=== PATIENT | female | born 1995 | race African-American/Black ===

== ENCOUNTER 2019-07-13 15:36 | Emergency (ER) | payer OTHER, SELFPAY ==
[2019-07-13 15:42] VITALS: BP 135/88; PULSE 66; RESP 16; TEMP 36.7; O2SAT 100
--- NOTE | 2019-07-13 15:54 | ED.URI ---
HPI - URI/Sore Throat General Chief Complaint: Upper Respiratory Infection Stated Complaint: NAUSEA/COUGH/TIRED Time Seen by Provider: 07/13/19 15:54 Source: patient and RN notes reviewed Mode of arrival: ambulatory Limitations: no limitations History of Present Illness HPI Narrative: 24-year-old female presents with concern for body aches, fever, general malaise, cough, rhinorrhea, nasal congestion. Reports taking [id number] medications with little relief. MD elicited complaint: fever Related Data Home Medications Medication Instructions Recorded Confirmed amitriptyline 07/13/19 Allergies Allergy/AdvReac Type Severity Reaction Status Date / Time No Known Allergies Allergy Verified 06/12/19 20:06 Review of Systems Review of Systems: Narrative: CONSTITUTIONAL: Reports malaise, chills, sweats, fever. EYES: Denies visual changes, redness, or discharge. ENT: Denies rhinorrhea, congestion, sore throat. Denies sinus pain, otalgia. CARDIOVASCULAR: Denies chest pain, palpitations, or edema. RESPIRATORY: Reports cough. Denies dyspnea. GASTROINTESTINAL: Denies abdominal pain, nausea, vomiting, diarrhea SKIN: Denies rash or itching. MUSCULOSKELETAL: Reports myalgia. NEUROLOGIC: Report headache. All systems reviewed & are unremarkable except as noted in HPI and below PMFSH Social History Social History Smoking status: Former smoker Smoking end date: 05/25/11 Alcohol intake: current Substance use type: marijuana Gender identity (if verbalized by the patient): Female Comments At time of signature, agree with nursing past medical, surgical, social and family history. There is no relevant family history pertinent to the presenting complaint Exam Narrative: Exam Narrative: GENERAL: Well-appearing, well-nourished, and in no acute distress. HEAD: Normocephalic EYES: PERRLA, conjunctivae clear ENT: Nares clear, turbinates edematous and erythematous, clear discharge. Mucous membranes moist. TM pearly ng with dull light reflex bilaterally; no tragal tenderness. Oropharynx not erythematous without lesions. Tonsils not enlarged and without exudate, no drooling, no hoarseness, no trismus. NECK: Supple. No lymphadenopathy CHEST: Clear to auscultation, breath sounds equal. No wheezing, rhonchi, rales, or stridor. No respiratory distress, speaks in full sentences. HEART: Regular rate and rhythm. No murmur heard. Normal peripheral pulses. SKIN: Warm, dry, no rash. NEURO: Alert and oriented x3. PSYCH: Normal mood and affect Course Course Emergency Course: Patient is aware of diagnosis, understands and agrees to treatment plan. Anticipatory guidance given. Patient agrees to follow-up as directed and is aware of reasons to seek care at the emergency department. Portions of this record may have been created with voice recognition software Vital Signs Vital signs: Vital Signs Temperature 98.1 F 07/13/19 15:42 Pulse Rate 66 07/13/19 15:42 Respiratory Rate 16 07/13/19 15:42 Blood Pressure 135/88 07/13/19 15:42 Pulse Oximetry 100 07/13/19 15:42 Temperature 98.1 F 07/13/19 15:42 Pulse Rate 66 07/13/19 15:42 Respiratory Rate 16 07/13/19 15:42 Blood Pressure 135/88 07/13/19 15:42 Pulse Oximetry 100 07/13/19 15:42 Reviewed. Patient has been instructed to follow up with her primary care provider within the next week regarding her elevated blood pressure today. MDM - URI/Sore Throat MDM Narrative Medical decision making narrative: Differential diagnosis considered: Strep pharyngitis, allergic rhinitis, upper respiratory tract infection, sinusitis, rhinosinusitis, nasopharyngitis. viral pharyngitis, otitis media, otitis externa, pneumonia, bronchitis, viral cough syndrome, viral syndrome, and influenza. Exam findings show no acute concerns or changes; patient is non-toxic appearing and is in no distress. Patient is appropriate for o
== END 2019-07-13 16:18 | disposition home or self-care (01) ==
PROVIDERS: Emergency Provider Nurse Practitioner; PCP Nurse Practitioner Family
DX: R05 Cough (principal); R52 Pain, unspecified; J34.89 Other specified disorders of nose and nasal sinuses; R09.81 Nasal congestion; R50.9 Fever, unspecified; Z87.891 Personal history of nicotine dependence
CPT/HCPCS: 87804; 99213; G0463

== ENCOUNTER 2019-08-11 07:10 | Outpatient (CLI) | payer OTHER, SELFPAY ==
--- NOTE | ~2019-08-11 | MR_ITS ---
EXAMINATION: MR brain/brain stem wo con EXAM DATE: 08/11/2019 07:56 INDICATION: Central chronic migraines, progressing. History of concussion. TECHNIQUE: Magnetic resonance imaging (MRI) of the brain/brain stem obtained without contrast. Sagitt al T1, axial diffusion, gradient echo (T2*), T1, T2, FLAIR sequences obtained. There is no prior st udy for comparison. FINDINGS: There are no areas of restricted diffusion to suggest acute infarction. There is no acute hemorrhage seen on the T2*, a hemosiderin sensitive sequence. No intraparenchymal brain mass. The ve ntricles are normal in size. There are no extra-axial collections. Flow voids are seen in the cereb ral arteries on the T2-weighted sequences consistent with their expected patency. The orbits are unr emarkable. Soft tissue is unremarkable. IMPRESSION: 1. Normal brain MRI examination. Reviewed, dictated and finalized at location A.
== END 2019-08-11 07:11 ==
PROVIDERS: PCP Nurse Practitioner Family; Visit Provider Nurse Practitioner Family
DX: R51 Headache (principal)
CPT/HCPCS: 70551

== ENCOUNTER 2020-03-10 11:56 | Emergency (ER) | payer OTHER, MEDICAID, SELFPAY ==
--- NOTE | ~2020-03-10 | XR_ITS ---
EXAMINATION: XR chest 2V DATE: 03/10/2020 13:55 INDICATION: Cough. Mid to right-sided chest pain. TECHNIQUE: Frontal and lateral views of the chest were obtained. COMPARISON: CT abdomen 12/06/2005 FINDINGS: The chest demonstrates clear lungs without pneumonia, pleural effusion, or pneumothorax. Th e heart size is normal. IMPRESSION: 1. No acute cardiopulmonary disease. Reviewed, dictated and finalized at location A.
[2020-03-10 12:10] VITALS: BP 140/92; PULSE 90; RESP 20; TEMP 36.7; O2SAT 100
[2020-03-10 12:25] LABS: Add Urine Microscopic? YES; Appearance Urine Cloudy (Clear); Bilirubin Urine Negative (Negative); Blood Urine Negative (Negative); Color Urine Yellow (Yellow); Glucose Urine UA Negative (Negative); Ketones Urine Negative (Negative); Leukocyte Esterase Ur Negative LEU/UL (Negative); Mucus Urine Rare /lpf; Nitrate Urine Negative (Negative); Protein Urine Negative (Negative); RBC Urine 0-2 /hpf (0-2); Specific Grav Ur 1.023 (1.001-1.035); Squamous Epithelial Cell Urine Many /hpf (Few); Urobilinogen Urine Negative mg/dL (<2.0); WBC Urine 0-3 /hpf
--- NOTE | 2020-03-10 12:52 | PC.NURSE ---
resting on stretcher. updated patient and family member on current treatment plan and expected wait time.
[2020-03-10 13:11] LABS: Basophils Percent Auto 0.3 % (0.2-1.2); Eosinophils Absolute Auto 0.1 K/mm3 (0-0.3); Eosinophils Percent Auto 1.2 % (0-4.4); Hematocrit 40.5 % (37.0-47.0); Hemoglobin 13.5 g/dL (12.0-15.0); Immature Granulocyte Absolute 0.02 K/mm3 (0.00-0.031); Immature Granulocyte Percent A 0.2 % (0-0.5); Lymphocytes Absolute Auto 2.53 K/mm3 (0.9-3.2); Lymphocytes Percent Auto 28.3 % (18.3-44.2); Mean Corpuscular HGB Conc 33.3 g/dl (32-36); Mean Corpuscular Hemoglobin 29.7 pg (26-34); Mean Platelet Volume 8.9 fl (7.4-10.4); Monocytes Absolute Auto 0.5 K/mm3 (0.1-0.6); Monocytes Percent Auto 5.5 % (2.6-8.5); Neutrophils Absolute Auto 5.8 K/mm3 (1.3-6.7); Neutrophils Percent Auto 64.5 % (45.5-73.1); Platelet Count Result 373 k/mm3 (150-375); Red Blood Count 4.55 M/mm3 (4.2-5.4); Red Cell Distribution Width 13.2 % (11.5-14.5); White Blood Count 8.9 K/mm3 (4.5-10.0)
[2020-03-10 13:22] LABS: Alanine Aminotransferase 17 U/L (4-35); Albumin Level 4.2 g/dL (3.5-5.1); Alkaline Phosphatase 59 U/L (38-126); Anion Gap 7 mmol/L (8-16); Aspartate Amino Transferase 18 U/L (14-36); Bilirubin,Total 0.5 mg/dL (0.2-1.3); Blood Urea Nitrogen 8 mg/dL (7-17); Calcium 9.3 mg/dL (8.4-10.2); Carbon Dioxide 25 mmol/L (22-30); Chloride 105 mmol/L (98-107); Estimated CRCL calculation 87 ml/min; Estimated Glomerular Filt Rate > 60; Glucose 107 mg/dL (65-105); Lipase 186 U/L (23-300); Potassium 3.7 mmol/L (3.4-5.0); Sodium 137 mmol/L (137-145)
[2020-03-10] MEDS: DICYCLOMINE HCL INJ 20 MG/2 ML VIAL IM (13:31)
[2020-03-10] MEDS: SIMETHICONE 125 MG CHEW TAB PO (13:36)
--- NOTE | 2020-03-10 13:40 | ED.GENADULT ---
HPI - General Adult General Chief complaint: Urogenital-Female Stated complaint: uti?/kidney pain Time Seen by Provider: 03/10/20 12:02 History of Present Illness HPI narrative: Patient is a 25-year-old female who presents to the ER with a litany of complaints. For the last 2 weeks she has felt progressively weak. She started having bloating and discomfort in her abdomen that is associated with intermittent nausea and vomiting. Over the last week she started having diarrhea with 4 loose stools a day. She also reports frequent urination with change in the color of her urine. No overt dysuria or fevers or chills or sweats. Pain is starting to move into her kidney area bilaterally. No aggravating or alleviating factors that she is noted. Related Data Home Medications Medication Instructions Recorded Confirmed lorazepam 0.5 mg PO HS PRN 03/10/20 03/10/20 Allergies Allergy/AdvReac Type Severity Reaction Status Date / Time No Known Allergies Allergy Verified 03/10/20 12:04 Review of Systems Review of Systems: All systems reviewed & are unremarkable except as noted in HPI and below Constitutional: Constitutional: Denies chills, Reports fatigue and Denies fever(s) Cardiovascular: Cardiovascular: Denies chest pain Respiratory: Respiratory: Reports cough and Denies dyspnea Gastrointestinal: Gastrointestinal: Reports abdominal pain, Denies belching, Reports bloating, Reports diarrhea, Reports nausea and Reports vomiting Genitourinary: Genitourinary: Reports nocturia and Denies dysuria PMFSH Past Medical History Medical History (Updated 03/10/20 @ 14:38 by Kd Barrera MD) Abscess Chronic daily headache Fatigue GERD without esophagitis Family History Family History Grandparent Family history of thyroid disease Hypertension Family history of elevated blood lipids Acute myocardial infarction Mother Family history of elevated blood lipids Social History Social History Smoking status: Former smoker Smoking end date: 05/25/11 Alcohol intake: current Substance use type: marijuana Gender identity (if verbalized by the patient): Female Exam Narrative: Exam Narrative: GENERAL: Well-appearing, well-nourished, and in no acute distress. HEAD: Normocephalic, atraumatic. ENT: TMs normal bilaterally. CHEST: Clear to auscultation. No respiratory distress. HEART: Regular rate and rhythm. Normal peripheral pulses. ABDOMEN: Soft, nontender, nondistended. EXTREMITIES: Normal range of motion. No edema. SKIN: Warm, dry, no rash. NEURO: Alert and oriented x3. Course Course Emergency Course: Unremarkable evaluation. Discharge home. Vital Signs Vital signs: Vital Signs Temperature 98.0 F 03/10/20 12:10 Pulse Rate 90 03/10/20 12:10 Respiratory Rate 20 03/10/20 12:10 Blood Pressure 140/92 H 03/10/20 12:10 Pulse Oximetry 100 03/10/20 12:10 Temperature 98.0 F 03/10/20 12:10 Pulse Rate 90 03/10/20 12:10 Respiratory Rate 20 03/10/20 12:10 Blood Pressure 140/92 H 03/10/20 12:10 Pulse Oximetry 100 03/10/20 12:10 Medical Decision Making Vital Signs Vital Signs: Vital Signs Temperature 98.0 F 03/10/20 12:10 Pulse Rate 90 03/10/20 12:10 Respiratory Rate 20 03/10/20 12:10 Blood Pressure 140/92 H 03/10/20 12:10 Pulse Oximetry 100 03/10/20 12:10 Temperature 98.0 F 03/10/20 12:10 Pulse Rate 90 03/10/20 12:10 Respiratory Rate 20 03/10/20 12:10 Blood Pressure 140/92 H 03/10/20 12:10 Pulse Oximetry 100 03/10/20 12:10 Lab Data Result diagrams: 03/10/20 13:05 03/10/20 13:05 Labs: Lab Results 03/10/20 03/10/20 03/10/20 Range/Units 12:08 13:05 13:05 WBC 8.9 (4.5-10.0) K/mm3 RBC 4.55 (4.2-5.4) M/mm3 Hgb 13.5 (12.0-15.0) g/dL Hct 40.5 (37.0-47.0) % MCV 89.0
--- NOTE | 2020-03-10 14:11 | PC.NURSE ---
patient resting on stretcher. SO in room. alert. appears comfortable but states she needs pain medication. patient given meds at 1329. will continue to monitor. labs all resulted. CXR resulted. waiting for further orders from provider vs disposition.
--- NOTE | 2020-03-10 15:11 | PC.NURSE ---
Clara RN to room to discharge patient home. patient upset. states I have not had good care . patient is upset that she didnt get IV placed or IV pain medication. attempted to explain to patient and SO that her labs are normal, UA is normal and CXR are normal. patient signed in here with urinary symptoms. now mentions cough and diarrhea. wants a full work up. Dr. Barrera notified by RN to discuss with patient.
[2020-03-10 15:21] VITALS: BP 131/79; PULSE 108; RESP 18; O2SAT 100
== END 2020-03-10 15:22 | disposition home or self-care (01) ==
PROVIDERS: Emergency Provider Emergency Medicine; PCP Emergency Medicine
DX: K52.9 Noninfective gastroenteritis and colitis, unspecified (principal); K21.9 Gastro-esophageal reflux disease without esophagitis; Z87.891 Personal history of nicotine dependence
CPT/HCPCS: 36415; 71046; 80053; 81001; 81025; 83690; 85025; 96372; 99283; A9270; J0500

== ENCOUNTER 2020-04-30 16:41 | Emergency (ER) | payer OTHER, SELFPAY ==
--- NOTE | 2020-04-30 16:44 | ED.URI ---
HPI - URI/Sore Throat General Chief Complaint: Upper Respiratory Infection Stated Complaint: sore throat/runny nose/chest pain/chest congestion Time Seen by Provider: 04/30/20 16:43 Source: patient and RN notes reviewed Limitations: no limitations History of Present Illness HPI Narrative: The patient, a non-smoker/nondrinker, presents with 1/2-week history of cough, congestion, scratchy throat and myalgias with chest pains and headache. No fever[T-max 99.7 po], S OB, wheezing, loss of taste/smell, sick family, calf pain/edema, sputum changes. She does have some sharp/pleuritic pain by her sternum that is worse with motion, better with rest. Related Data Home Medications Medication Instructions Recorded Confirmed lorazepam 0.5 mg PO HS PRN 03/10/20 04/30/20 Allergies Allergy/AdvReac Type Severity Reaction Status Date / Time No Known Allergies Allergy Verified 04/30/20 16:51 Review of Systems Review of Systems: Narrative: The patient has been informed that they may have pre-hypertension or Hypertension based on a BP reading in the department. I recommend that the patient call the primary care provider listed on their discharge instructions or a physician of their choice this week to arrange follow up for further evaluation of possible pre-hypertension or Hypertension General/Constitutional: No weight loss,has 'fever' Eyes: N0: Redness,discharge Ears/Nose/Throat: No: Epistaxis,ear discharge Respiratory: Denies: Hemoptysis Gastrointestinal: No Vomiting, Bleeding-rectal Skin: No Lumps, eruption Neurologic: No Focal Weakness,Sz Hematologic: Denies: Petechiae/Purpura Psychiatric: No: Suicida ideationl All Other Systems: Reviewed and Negative FOR[facility]LY [facility] Past Medical History Medical History (Updated 04/30/20 @ 17:01 by Yovany Lacy MD) Abscess Chronic daily headache Fatigue GERD without esophagitis Family History Family History Grandparent Family history of thyroid disease Hypertension Family history of elevated blood lipids Acute myocardial infarction Mother Family history of elevated blood lipids Social History Social History Smoking status: Former smoker Smoking end date: 05/25/11 Alcohol intake: current Substance use type: marijuana Gender identity (if verbalized by the patient): Female Comments At time of signature, agree with nursing past medical, surgical, social and family history. There is no relevant family history pertinent to the presenting complaint Exam Narrative: Exam Narrative: General Appearance: Well appearing, Conjunctiva clear Ears: Auditory canal normal, TM normal Nose: Rhinorrhea, Mucousal erythema Mouth/Throat: MM moist, Uvula midline, Pharyngeal erythema Neck: Supple, No adenopathy Respiratory: No respiratory distress, Breath sounds equal, Clear to auscultation Cardiovascular: RRR, No JVD Musculoskeletal: Non tender, Normal strength Skin: Warm, Dry Neurological: A&O x3, Normal affect Course Vital Signs Vital signs: Vital Signs Temperature 98.5 F 04/30/20 16:47 Pulse Rate 97 04/30/20 16:47 Respiratory Rate 20 04/30/20 16:47 Blood Pressure 142/84 H 04/30/20 16:47 Pulse Oximetry 100 04/30/20 16:47 Temperature 98.5 F 04/30/20 16:47 Pulse Rate 97 04/30/20 16:47 Respiratory Rate 20 04/30/20 16:47 Blood Pressure 142/84 H 04/30/20 16:47 Pulse Oximetry 100 04/30/20 16:47 Discharge Plan Discharge Clinical Impression: Upper respiratory infection Qualifiers: URI type: unspecified URI Qualified Code(s): J06.9 - Acute upper respiratory infection, unspecified Patient Disposition: Home, Self-Care Condition: Stable Instructions: Antibiotic Form, Acute Bronchitis (ED) Prescriptions: New azithromycin 250 mg tablet See Rx Instructions .ROUTE .COMPLEX Qty: 6 RF: 0 Lidocaine
[2020-04-30 16:47] VITALS: BP 142/84; PULSE 97; RESP 20; TEMP 36.9; O2SAT 100
== END 2020-04-30 17:10 | disposition home or self-care (01) ==
PROVIDERS: Emergency Provider Emergency Medicine
DX: J06.9 Acute upper respiratory infection, unspecified (principal); Z20.828 Contact with and (suspected) exposure to other viral communicable diseases; Z87.891 Personal history of nicotine dependence; K21.9 Gastro-esophageal reflux disease without esophagitis
CPT/HCPCS: 99213; G0463

== ENCOUNTER 2020-05-01 06:57 | Outpatient (NON) | payer OTHER, SELFPAY ==
[2020-05-01 23:33] LABS: SARS-CoV-2 RNA PCR Negative
== END 2020-05-01 06:58 ==
PROVIDERS: Visit Provider Emergency Medicine
DX: J06.9 Acute upper respiratory infection, unspecified (principal); Z20.828 Contact with and (suspected) exposure to other viral communicable diseases
CPT/HCPCS: 87635; C9803; U0003

== ENCOUNTER 2020-11-03 15:31 | Emergency (ER) | payer OTHER, SELFPAY ==
--- NOTE | ~2020-11-03 | XR_ITS ---
EXAMINATION: XR chest 2V DATE: 11/03/2020 17:25 INDICATION: Cough and fever post recent surgery with intubation. TECHNIQUE: PA and lateral views of the chest were obtained. COMPARISON: Chest radiograph dated 03/10/2020 FINDINGS: The lungs remain clear with no focal airspace opacities, pulmonary edema, pleural effusion or pneumot horax. The cardiomediastinal silhouette is normal. Visualized bones and soft tissues are unremarkable . IMPRESSION: 1. No acute cardiopulmonary disease. Reviewed, dictated and finalized at location A.
--- NOTE | ~2020-11-03 | CT_ITS ---
EXAMINATION: CT abdomen pelvis w con DATE: 11/03/2020 18:49 INDICATION: Postoperative abdominal pain and fever following reported dilation and curettage. TECHNIQUE: Computed tomography (CT) of the abdomen and pelvis was performed with 100 mL Omnipaque-350 intravenous contrast. Automated exposure control and iterative reconstruction technique were employe d. The dose-length product was 514.76 mGy-cm. COMPARISON: CT abdomen dated 12/06/2005 FINDINGS: Lung bases are clear. Heart size is normal. No pericardial or pleural effusion. Liver, gallbladder, s pleen, pancreas, bilateral adrenal glands and kidneys are normal. Large amount of colonic stool most prominent in the redundant cecum which extends across midline into the left hemipelvis. Appendix is n ormal. Small bowel is normal with no obstruction. Bladder, anteverted uterus and left adnexa are unre markable. 11 mm right adnexal cyst/follicle. Minimal likely physiologic free fluid in the pelvis. No abscess or free intraperitoneal gas. No pathologically enlarged abdominal or pelvic lymphadenopathy. Tiny fat-containing umbilical hernia with surrounding mild likely postoperative scarring. Mild lower lumbar levocurvature. Bones are otherwise unremarkable. IMPRESSION: 1. Large amount of colonic stool which could be seen with constipation. 2. Small amount of likely physiologic free fluid in the deep pelvis. No other acute intra-abdominal/p elvic process. Reviewed, dictated and finalized at location A. IMPRESSION: 1. Large amount of colonic stool which could be seen with constipation. 2. Small amount of likely physiologic free fluid in the deep pelvis. No other a cute intra-abdominal/pelvic process.
[2020-11-03 15:34] VITALS: BP 149/88; PULSE 92; RESP 18; TEMP 37.7; O2SAT 98
[2020-11-03 17:47] LABS: Basophils Percent Auto 0.4 % (0.2-1.2); Eosinophils Absolute Auto 0.2 K/mm3 (0-0.3); Eosinophils Percent Auto 1.7 % (0-4.4); Hematocrit 36.5 % (37.0-47.0); Hemoglobin 11.9 g/dL (12.0-15.0); Immature Granulocyte Absolute 0.02 K/mm3 (0.00-0.031); Immature Granulocyte Percent A 0.2 % (0-0.5); Lymphocytes Absolute Auto 2.97 K/mm3 (0.9-3.2); Lymphocytes Percent Auto 32.7 % (18.3-44.2); Mean Corpuscular HGB Conc 32.6 g/dl (32-36); Mean Corpuscular Hemoglobin 29.2 pg (26-34); Mean Corpuscular Volume 89.5 fl (80-100); Monocytes Absolute Auto 0.6 K/mm3 (0.1-0.6); Monocytes Percent Auto 6.3 % (2.6-8.5); Neutrophils Absolute Auto 5.3 K/mm3 (1.3-6.7); Neutrophils Percent Auto 58.7 % (45.5-73.1); Platelet Count Result 377 k/mm3 (150-375); Red Blood Count 4.08 M/mm3 (4.2-5.4); Red Cell Distribution Width 12.7 % (11.5-14.5); White Blood Count 9.1 K/mm3 (4.5-10.0)
[2020-11-03] MEDS: MORPHINE SULFATE (*CRX) 4 MG/ML INJ IV PUSH (17:47)
[2020-11-03 17:50] LABS: Add Urine Microscopic? YES; Appearance Urine Clear (Clear); Bilirubin Urine Negative (Negative); Blood Urine Negative (Negative); Color Urine Yellow (Yellow); Glucose Urine UA Negative (Negative); Ketones Urine Negative (Negative); Leukocyte Esterase Ur Negative LEU/UL (Negative); Nitrate Urine Negative (Negative); Protein Urine 1+ mg/dL (Negative); Specific Grav Ur 1.018 (1.001-1.035); Squamous Epithelial Cell Urine Few /hpf (Few); Urobilinogen Urine Negative mg/dL (<2.0); WBC Urine 0-3 /hpf
--- NOTE | 2020-11-03 17:52 | ED.GENADULT ---
HPI - General Adult General Chief complaint: Recheck/Abnormal Lab/Rx <Kd Barrera MD - Last Filed: 11/03/20 18:00> Stated complaint: post op check <Kd Barrera MD - Last Filed: 11/03/20 18:00> Time Seen by Provider: 11/03/20 17:09 <Kd Barrera MD - Last Filed: 11/03/20 18:00> History of Present Illness HPI narrative: Patient is a 25-year-old female who presents ER with fever. Patient underwent laparoscopy for endometriosis as well as D&C several days ago by Dr. Harris. She contacted the on-call physician who recommended she come to the ER for further evaluation given fever. Patient has been having increased cramping to her lower abdomen. She is also been having productive cough and occasional shortness of breath. Fevers been up to 100.3 ?F. No dysuria or urinary frequency. No malodorous vaginal discharge. She has had a little bit of spotting since her procedure which she was told was normal. <Kd Barrera MD - Last Filed: 11/03/20 18:00> Related Data Home medications: Home Medications Medication Instructions Recorded Confirmed lorazepam 0.5 mg PO HS PRN 03/10/20 04/30/20 <Kd Barrera MD - Last Filed: 11/03/20 18:00> Allergies/adverse reactions: Allergies Allergy/AdvReac Type Severity Reaction Status Date / Time No Known Allergies Allergy Verified 04/30/20 16:51 <Kd Barrera MD - Last Filed: 11/03/20 18:00> Review of Systems Review of Systems: All systems reviewed & are unremarkable except as noted in HPI and below <Kd Barrera MD - Last Filed: 11/03/20 18:00> Constitutional: Constitutional: Reports chills and Reports fever(s) <Kd Barrera MD - Last Filed: 11/03/20 18:00> ENT: Denies nasal congestion and Denies sore throat <Kd Barrera MD - Last Filed: 11/03/20 18:00> Cardiovascular: Cardiovascular: Denies chest pain and Denies radiating jaw, neck or arm pain <Kd Barrera MD - Last Filed: 11/03/20 18:00> Respiratory: Respiratory: Denies chest congestion, Reports cough and Reports dyspnea <Kd Barrera MD - Last Filed: 11/03/20 18:00> Gastrointestinal: Gastrointestinal: Reports abdominal pain, Denies diarrhea, Denies nausea and Denies vomiting <Kd Barrera MD - Last Filed: 11/03/20 18:00> Genitourinary: Genitourinary: Denies abnormal vaginal bleeding, Denies nocturia, Denies dysuria and Denies vaginal discharge <Kd Barrera MD - Last Filed: 11/03/20 18:00> PMFSH Past Medical History Medical History: Medical History (Updated 11/03/20 @ 19:53 by Eric Head MD) Abscess Chronic daily headache Fatigue GERD without esophagitis <Kd Barrera MD - Last Filed: 11/03/20 18:00> Surgical History Surgical History: Surgical History (Updated 11/03/20 @ 17:58 by Kd Barrera MD) H/O dilation and curettage History of laparoscopy <Kd Barrera MD - Last Filed: 11/03/20 18:00> Family History Family History: Family History Grandparent Family history of thyroid disease Hypertension Family history of elevated blood lipids Acute myocardial infarction Mother Family history of elevated blood lipids <Kd Barrera MD - Last Filed: 11/03/20 18:00> Social History Social History: Social History Smoking status: Former smoker Smoking end date: 05/25/11 Alcohol intake: current Substance use type: marijuana Gender identity (if verbalized by the patient): Female <Kd Barrera MD - Last Filed: 11/03/20 18:00> Exam Narrative: Exam Narrative: GENERAL: Well-appearing, well-nourished, and in no acute distress. HEAD: Normocephalic, atraumatic. ENT: Mucous membranes moist. No pharyngeal erythema or tonsillar exam. CHEST: Clear to auscultation. No respiratory distress. HEART: Regular rate and rhythm
[2020-11-03 17:59] LABS: Anion Gap 6 mmol/L (8-16); Blood Urea Nitrogen 8 mg/dL (7-17); Calcium 9.2 mg/dL (8.4-10.2); Carbon Dioxide 26 mmol/L (22-30); Chloride 107 mmol/L (98-107); Estimated CRCL calculation 89 ml/min; Estimated Glomerular Filt Rate > 60; Glucose 102 mg/dL (65-105); Potassium 4.4 mmol/L (3.4-5.0); Sodium 139 mmol/L (137-145)
[2020-11-03 20:13] VITALS: BP 119/80; PULSE 88; RESP 16; O2SAT 99
== END 2020-11-03 20:14 | disposition home or self-care (01) ==
PROVIDERS: Emergency Medicine; Emergency Provider Emergency Medicine
DX: R50.9 Fever, unspecified (principal); K21.9 Gastro-esophageal reflux disease without esophagitis; Z98.890 Other specified postprocedural states
CPT/HCPCS: 36415; 71046; 74177; 80048; 81001; 85025; 96374; 99284; J2270; Q9967

== ENCOUNTER 2020-12-08 19:06 | Emergency (ER) | payer OTHER, SELFPAY ==
--- NOTE | ~2020-12-08 | XR_ITS ---
EXAMINATION: XR chest 1V portable INDICATION: Chest pain TECHNIQUE: Portable AP chest at 2213 hours COMPARISON: 11/03/2020 FINDINGS: The lungs are free of acute opacities. There is no pleural effusion or pneumothorax. The ca rdiomediastinal silhouette is normal. The visualized bones and soft tissues are unremarkable. IMPRESSION: 1. No acute cardiopulmonary abnormality. Reviewed, dictated and finalized at location A.
[2020-12-08 19:11] VITALS: BP 145/101; PULSE 97; RESP 18; TEMP 37; O2SAT 100
--- NOTE | 2020-12-08 19:46 | ECG_ITS ---
Measurements Intervals [place] Rate: 97 P: 55 [place]: 138 QRS: 72 QRSD: 83 T: 50 QT: 336 QTc: 427 Interpretive Statements SINUS RHYTHM POSSIBLE LEFT ATRIAL ENLARGEMENT MINIMAL Q WAVES- DIFFUSE LEADS BORDERLINE ECG Electronically Signed On 12-09-2020 7:24:00 CDT by Hai Banerjee D.O.
--- NOTE | 2020-12-08 20:14 | ED.GENADULT ---
HPI - General Adult General Chief complaint: Shortness of Breath/Dyspnea Stated complaint: bronchitis Time Seen by Provider: 12/08/20 19:35 History of Present Illness HPI narrative: Patient was 5-year-old female presents the emergency department with chief complaint of chest wall pain and cough. Patient reports that she was diagnosed with bronchitis in urgent care and started on Augmentin and given an inhaler. The patient reports that she has subsequently continued to cough reports that she has pain in her chest wall reports is worse with inspiration and worse with cough. Patient reports she had subjective fevers at home and reports that she has had one of the 2 vaccines for COVID-19 she reports her first dose was on the seventh. Patient reported that she had a rapid test done at urgent care that was negative but is still concerned that she may have Covid. The patient denies prior history of thromboembolic event reports that the cough is nonproductive. Related Data Home Medications Medication Instructions Recorded Confirmed lorazepam 0.5 mg PO HS PRN 03/10/20 04/30/20 Allergies Allergy/AdvReac Type Severity Reaction Status Date / Time No Known Allergies Allergy Verified 04/30/20 16:51 Review of Systems Review of Systems: Narrative: A 10 system review of systems was completed on the patient and is negative except for what is stated in the HPI. Nursing and ancillary documentation was reviewed. PMFSH Past Medical History Medical History Abscess Chronic daily headache Fatigue GERD without esophagitis Surgical History Surgical History H/O dilation and curettage History of laparoscopy Family History Family History Grandparent Family history of thyroid disease Hypertension Family history of elevated blood lipids Acute myocardial infarction Mother Family history of elevated blood lipids Social History Social History Smoking status: Former smoker Smoking end date: 05/25/11 Alcohol intake: current Substance use type: marijuana Gender identity (if verbalized by the patient): Female Exam Narrative: Exam Narrative: GENERAL: Well-appearing, well-nourished, and in no acute distress. HEAD: Normocephalic, atraumatic. EYES: PERRLA and EOMI. ENT: Nares clear, no rhinorrhea or epistaxis. Mucous membranes moist. NECK: Supple. CHEST: Clear to auscultation. No respiratory distress. Chest wall tender to palpation in the left sternal border HEART: Regular rate and rhythm. No murmur heard. Normal peripheral pulses. ABDOMEN: Soft, nontender, nondistended, normal active bowel sounds. EXTREMITIES: Normal range of motion. No edema. SKIN: Warm, dry, no rash. NEURO: No focal deficits. Alert and oriented x3. PSYCH: Normal mood and affect. Course Course Emergency Course: Due to the patient being partially treated with amoxicillin concerned the whether the patient has an atypical bacterial infection additional coverage will be added to the patient's current antimicrobial therapy patient will be started on Tessalon Perles for the cough and the patient will be started on a anti-inflammatory dose of a nonsteroidal. The patient's D-dimer was not elevated at this time is considered low risk the patient has a pulmonary embolism. Vital Signs Vital signs: Vital Signs Temperature 37.0 C 12/08/20 19:11 Pulse Rate 97 12/08/20 19:11 Respiratory Rate 18 12/08/20 19:11 Blood Pressure 145/101 H 12/08/20 19:11 Pulse Oximetry 100 12/08/20 19:11 Temperature 37.0 C 12/08/20 19:11 Pulse Rate 97 12/08/20 19:11 Respiratory Rate 18 12/08/20 19:11 Blood Pressure 145/101 H 12/08/20 19:11 Pulse Oximetry 100 12/08/20 19:11 Medical Decision Making Nat
[2020-12-08] MEDS: KETOROLAC 30 MG/ML VIAL (*BKC) IV PUSH (20:25)
[2020-12-08] MEDS: BENZONATATE 100 MG CAPSULE 200 MG PO (20:29)
[2020-12-08 20:43] LABS: Basophils Percent Auto 0.3 % (0.2-1.2); Eosinophils Absolute Auto 0.2 K/mm3 (0-0.3); Eosinophils Percent Auto 1.7 % (0-4.4); Hematocrit 38.2 % (37.0-47.0); Hemoglobin 12.7 g/dL (12.0-15.0); Immature Granulocyte Absolute 0.02 K/mm3 (0.00-0.031); Immature Granulocyte Percent A 0.2 % (0-0.5); Lymphocytes Absolute Auto 3.64 K/mm3 (0.9-3.2); Lymphocytes Percent Auto 38.3 % (18.3-44.2); Mean Corpuscular HGB Conc 33.2 g/dl (32-36); Mean Corpuscular Hemoglobin 29.1 pg (26-34); Mean Corpuscular Volume 87.4 fl (80-100); Mean Platelet Volume 9.7 fl (7.4-10.4); Monocytes Absolute Auto 0.7 K/mm3 (0.1-0.6); Monocytes Percent Auto 7.2 % (2.6-8.5); Neutrophils Percent Auto 52.3 % (45.5-73.1); Platelet Count Result 402 k/mm3 (150-375); Red Blood Count 4.37 M/mm3 (4.2-5.4); Red Cell Distribution Width 12.7 % (11.5-14.5); White Blood Count 9.5 K/mm3 (4.5-10.0)
[2020-12-08 20:46] LABS: Add Urine Microscopic? YES; Appearance Urine Clear (Clear); Bilirubin Urine Negative (Negative); Blood Urine Negative (Negative); Color Urine Yellow (Yellow); Glucose Urine UA Negative (Negative); Ketones Urine Negative (Negative); Leukocyte Esterase Ur Negative LEU/UL (Negative); Mucus Urine Rare /lpf; Nitrate Urine Negative (Negative); Protein Urine Negative (Negative); RBC Urine 0-2 /hpf (0-2); Specific Grav Ur 1.026 (1.001-1.035); Squamous Epithelial Cell Urine Rare /hpf (Few); Urobilinogen Urine Negative mg/dL (<2.0)
[2020-12-08 21:08] LABS: INR 0.8; Partial Thromboplastin Time 26.9 SECONDS (22.3-36.8); Prothrombin Time 11.5 Seconds (11.1-14.7)
[2020-12-08 21:11] LABS: D Dimer 0.31 ug/mL (<0.48)
[2020-12-08 21:13] LABS: Alanine Aminotransferase 13 U/L (4-35); Albumin Level 4.3 g/dL (3.5-5.1); Alkaline Phosphatase 74 U/L (38-126); Anion Gap 11 mmol/L (8-16); Aspartate Amino Transferase 25 U/L (14-36); Bilirubin,Total 0.3 mg/dL (0.2-1.3); Blood Urea Nitrogen 13 mg/dL (7-17); Calcium 9.5 mg/dL (8.4-10.2); Carbon Dioxide 25 mmol/L (22-30); Chloride 103 mmol/L (98-107); Estimated CRCL calculation 89 ml/min; Estimated Glomerular Filt Rate > 60; Glucose 97 mg/dL (65-110); Potassium 3.7 mmol/L (3.4-5.0); Sodium 139 mmol/L (137-145)
[2020-12-08 21:25] LABS: NT Pro B Type Natriuretic Pept 25 pg/mL (5-100); Troponin I < 0.012 ng/mL (0.000-0.034)
[2020-12-08 22:50] VITALS: BP 144/91; PULSE 99; RESP 16; O2SAT 100
[2020-12-10 20:38] LABS: SARS-CoV-2 RNA PCR Negative
== END 2020-12-08 22:51 | disposition home or self-care (01) ==
PROVIDERS: Emergency Provider Emergency Medicine
DX: J20.9 Acute bronchitis, unspecified (principal); R07.89 Other chest pain; Z20.822 Contact with and (suspected) exposure to COVID-19; K21.9 Gastro-esophageal reflux disease without esophagitis; Z87.891 Personal history of nicotine dependence; R94.31 Abnormal electrocardiogram [ECG] [EKG]
CPT/HCPCS: 36415; 71045; 80053; 81001; 81025; 83880; 84484; 85025; 85380; 85610; 85730; 93005; 96374; 99284; A9270; C9803; J1885; U0003; U0005

== ENCOUNTER 2021-02-16 12:28 | Emergency (ER) | payer OTHER, SELFPAY ==
[2021-02-16 12:34] VITALS: BP 143/90; PULSE 87; RESP 16; TEMP 37; O2SAT 100
--- NOTE | 2021-02-16 12:37 | ED.URI ---
HPI - URI/Sore Throat General Chief Complaint: Upper Respiratory Infection Stated Complaint: fatigue/cough/sore throat Time Seen by Provider: 02/16/21 12:41 Source: patient and RN notes reviewed Mode of arrival: ambulatory Limitations: no limitations History of Present Illness HPI Narrative: 26-year-old female presents with concern for 2-1/2-day history of fatigue, cough, sore throat, headache. She reports a history of chronic costochondritis causing the cough to make her chest hurt. Reports she has been taking home remedies such as teas with little relief. She reports she has been vaccinated for Covid. She denies body aches, chills, sweats. Reports low-grade fever of 99.9. She denies shortness of breath. Denies nausea, vomiting, diarrhea. 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 elicited complaint: cough Related Data Home Medications Medication Instructions Recorded Confirmed desog-e.estradiol/e.estradiol 1 tablet PO DAILY 02/16/21 02/16/21 [Paige (28)] Allergies Allergy/AdvReac Type Severity Reaction Status Date / Time No Known Allergies Allergy Verified 02/16/21 12:32 Review of Systems Review of Systems: CONSTITUTIONAL: Reports malaise, fatigue, low-grade fever. EYES: Denies visual changes, redness, or discharge. ENT: Reports rhinorrhea, congestion, sore throat. Denies sinus pain, otalgia CARDIOVASCULAR: Denies chest pain, palpitations, or edema. RESPIRATORY: Reports cough. Denies dyspnea. GASTROINTESTINAL: Denies abdominal pain, nausea, vomiting, diarrhea SKIN: Denies rash or itching. MUSCULOSKELETAL: Denies myalgia. NEUROLOGIC: Reports headache. All systems reviewed & are unremarkable except as noted in HPI and below PMFSH Past Medical History Medical History Abscess Chronic daily headache Fatigue GERD without esophagitis Surgical History Surgical History H/O dilation and curettage History of laparoscopy Family History Family History Grandparent Family history of thyroid disease Hypertension Family history of elevated blood lipids Acute myocardial infarction Mother Family history of elevated blood lipids Social History Social History Smoking status: Former smoker Smoking end date: 05/25/11 Alcohol intake: current Substance use type: marijuana Gender identity (if verbalized by the patient): Female Comments At time of signature, agree with nursing past medical, surgical, social and family history. There is no relevant family history pertinent to the presenting complaint Exam Narrative: GENERAL: Well-appearing, well-nourished, and in no acute distress. HEAD: Normocephalic EYES: PERRLA, conjunctivae clear ENT: Nares clear, turbinates erythematous, clear discharge. Mucous membranes moist. TM pearly ng with dull light reflex bilaterally; no tragal tenderness. Oropharynx not erythematous without lesions. Tonsils enlarged and without exudate, no drooling, no hoarseness, no trismus, uvula midline. NECK: Supple. No lymphadenopathy CHEST: Clear to auscultation, breath sounds equal. No wheezing, rhonchi, rales, or stridor. No respiratory distress, speaks in full sentences. HEART: Regular rate and rhythm. No murmur heard. SKIN: Warm, dry, no rash. NEURO: Alert and oriented x3. PSYCH: Normal mood and affect Course Course Emergency Course: Patient is aware of diagnosis, understands and agrees to treatment plan. Anticipatory guidance given. Patient agrees to follow-up as directed and is aware of reasons to seek care at the emergency department. Portions of this record may have been created with voice recognition software Vital Signs Vital signs: Vital Signs Temperature 98.6 F 02/16/21 12:34 Pulse Rate
[2021-02-18 17:27] LABS: SARS-CoV-2 RNA PCR Negative
== END 2021-02-16 13:10 | disposition home or self-care (01) ==
PROVIDERS: Emergency Provider Nurse Practitioner
DX: J06.9 Acute upper respiratory infection, unspecified (principal); Z87.891 Personal history of nicotine dependence; Z20.822 Contact with and (suspected) exposure to COVID-19
CPT/HCPCS: 87804; 99213; C9803; G0463; U0003; U0005

== ENCOUNTER 2021-02-20 11:32 | Emergency (ER) | payer OTHER, SELFPAY ==
[2021-02-20 11:48] VITALS: BP 131/95; PULSE 84; RESP 16; TEMP 36.4; O2SAT 100
--- NOTE | 2021-02-20 11:51 | ED.URI ---
HPI - URI/Sore Throat General Chief Complaint: Upper Respiratory Infection Stated Complaint: COUGH/SOB/PAIN Time Seen by Provider: 02/20/21 11:52 Source: patient and RN notes reviewed History of Present Illness HPI Narrative: Patient is a 26-year-old female who presents the urgent care with complaints of cough, intermittent shortness of breath and sore throat. Patient states that she was seen at the facility on Thursday and has been using her cough medication and nasal spray as directed. Patient also also been taking the Zyrtec-D. States that she did follow-up with a Covid test, which was negative. Patient states that her main issue is the bad cough. States that she had to leave work today because of the cough . Denies of any known exposure to strep or Covid. No other acute complaints. No acute distress noted. Patient aware of the plan of care. Some parts of this dictation were generated by voice recognition software and may contain typographical and/or grammatical inaccuracies. Related Data Home Medications Medication Instructions Recorded Confirmed desog-e.estradiol/e.estradiol 1 tablet PO DAILY 02/16/21 02/16/21 [Paige (28)] Allergies Allergy/AdvReac Type Severity Reaction Status Date / Time No Known Allergies Allergy Verified 02/16/21 12:32 Review of Systems Review of Systems: CONSTITUTIONAL: Denies fever, chills, or sweats. EYES: Denies visual changes, redness, or discharge. ENT: Reports a sore throat and postnasal drainage CARDIOVASCULAR: Denies chest pain, palpitations, or edema. RESPIRATORY: Reports of cough with intermittent dyspnea GASTROINTESTINAL: Denies abdominal pain, nausea, vomiting, or diarrhea. GENITOURINARY: Denies dysuria or hematuria. SKIN: Denies rash or itching. MUSCULOSKELETAL: Denies back pain, joint pain, or myalgia. NEUROLOGIC: Denies headache, numbness, or weakness. All other systems reviewed are negative, except as documented in HPI. [facility] Past Medical History Medical History Abscess Chronic daily headache Fatigue GERD without esophagitis Surgical History Surgical History H/O dilation and curettage History of laparoscopy Family History Family History Grandparent Family history of thyroid disease Hypertension Family history of elevated blood lipids Acute myocardial infarction Mother Family history of elevated blood lipids Social History Social History Smoking status: Former smoker Smoking end date: 05/25/11 Alcohol intake: current Substance use type: marijuana Gender identity (if verbalized by the patient): Female Comments At the time of my signature, I reviewed and agree with the nursing past medical, surgical, social, and family history. There is no relevant family history pertinent to the patient complaint. Exam Narrative: GENERAL: This is a well-nourished, well-developed patient, in no apparent distress. HEAD: normocephalic, atraumatic. EYES: PERRL. Sclera clear/white. Vision is grossly intact. EARS: External ears normal, auditory canals clear and without drainage, TMs normal without perforation. Hearing grossly intact. NOSE: External nose normal with no obvious nasal discharge, nares without redness, no rhinorrhea. THROAT: Mucous membranes moist, posterior pharynx clear. Mild postnasal drainage NECK: Neck supple CARDIOVASCULAR: Regular rate and rhythm without murmurs, gallops, or rubs. RESPIRATORY: Clear to auscultation. Breath sounds equal bilaterally. No wheezes, rales, or rhonchi. GASTROINTESTINAL: Abdomen soft, non-tender, nondistended. Bowel sounds are active. No hepato-splenomegaly, or palpable masses. No guarding. SKIN: warm, intact with no suspicious lesions or rash, good texture and turgor.
== END 2021-02-20 12:26 | disposition home or self-care (01) ==
PROVIDERS: Emergency Provider Nurse Practitioner Family
DX: R05 Cough (principal); Z87.891 Personal history of nicotine dependence; K21.9 Gastro-esophageal reflux disease without esophagitis
CPT/HCPCS: 87081; 87880; 99213; G0463

== ENCOUNTER 2021-03-03 12:15 | Emergency (ER) | payer OTHER, SELFPAY ==
[2021-03-03 12:20] VITALS: BP 141/82; PULSE 101; RESP 16; TEMP 37.1; O2SAT 100
--- NOTE | 2021-03-03 12:25 | ED.URI ---
HPI - URI/Sore Throat General Chief Complaint: Upper Respiratory Infection Stated Complaint: Sore Throat Time Seen by Provider: 03/03/21 12:25 Source: patient and RN notes reviewed Mode of arrival: ambulatory Limitations: no limitations History of Present Illness HPI Narrative: 26-year-old female presents with concern for sore throat. Reports sore throat started yesterday. Reports she has had a sinus congestion, sinus drainage, cough, runny nose for 2 weeks that have not improved. Reports she has been seen in this clinic twice for the symptoms and has been taking her prescribed medications. Reports 2 weeks ago she had a sore throat that improved but she now has a sore throat again with body aches, chills, fatigue. She denies shortness of breath. Denies vomiting, diarrhea. MD elicited complaint: cough and sore throat Related Data Home Medications Medication Instructions Recorded Confirmed desog-e.estradiol/e.estradiol 1 tablet PO DAILY 02/16/21 02/16/21 [Viorele (28)] fluticasone propionate [Flonase] INTRANASAL 03/03/21 Allergies Allergy/AdvReac Type Severity Reaction Status Date / Time No Known Allergies Allergy Verified 03/03/21 12:20 Review of Systems Review of Systems: CONSTITUTIONAL: Reports malaise, chills, sweats, fever. EYES: Denies visual changes, redness, or discharge. ENT: Reports rhinorrhea, congestion, sinus pain, and sore throat. Denies otalgia CARDIOVASCULAR: Denies chest pain, palpitations, or edema. RESPIRATORY: Reports cough. Denies dyspnea. GASTROINTESTINAL: Denies abdominal pain, nausea, vomiting, diarrhea SKIN: Denies rash or itching. MUSCULOSKELETAL: Reports myalgia. NEUROLOGIC: Denies headache. All systems reviewed & are unremarkable except as noted in HPI and below PMFSH Past Medical History Medical History Abscess Chronic daily headache Fatigue GERD without esophagitis Surgical History Surgical History H/O dilation and curettage History of laparoscopy Family History Family History Grandparent Family history of thyroid disease Hypertension Family history of elevated blood lipids Acute myocardial infarction Mother Family history of elevated blood lipids Social History Social History Smoking status: Former smoker Smoking end date: 05/25/11 Alcohol intake: current Substance use type: marijuana Gender identity (if verbalized by the patient): Female Comments At time of signature, agree with nursing past medical, surgical, social and family history. There is no relevant family history pertinent to the presenting complaint Exam Narrative: GENERAL: Well-appearing, well-nourished, and in no acute distress. HEAD: Normocephalic EYES: PERRLA, conjunctivae clear ENT: Nares clear, turbinates edematous, erythematous, sinus tenderness. Mucous membranes moist. TM pearly ng with dull light reflex bilaterally; no tragal tenderness. Oropharynx mild erythematous without lesions. Tonsils not enlarged and without exudate, no drooling, no hoarseness, no trismus, uvula midline. NECK: Supple. No lymphadenopathy CHEST: Clear to auscultation, breath sounds equal. No wheezing, rhonchi, rales, or stridor. No respiratory distress, speaks in full sentences. Cough noted HEART: Regular rate and rhythm. No murmur heard. SKIN: Warm, dry, no rash. NEURO: Alert and oriented x3. PSYCH: Normal mood and affect Course Course Emergency Course: Patient is aware of diagnosis, understands and agrees to treatment plan. Anticipatory guidance given. Patient agrees to follow-up as directed and is aware of reasons to seek care at the emergency department. Portions of this record may have been created with voice recognition software Vital Signs Vital sig
== END 2021-03-03 13:05 | disposition home or self-care (01) ==
PROVIDERS: Emergency Provider Nurse Practitioner
DX: J01.90 Acute sinusitis, unspecified (principal); K21.9 Gastro-esophageal reflux disease without esophagitis; Z87.891 Personal history of nicotine dependence
CPT/HCPCS: 36416; 86308; 87081; 87880; 99213; G0463

== ENCOUNTER 2024-05-23 08:20 | Emergency (ER) | payer SELFPAY ==
--- NOTE | ~2024-05-23 | XR_ITS ---
EXAMINATION: XR chest 2V DATE: 05/23/2024 09:09 INDICATION: Shortness of breath, cough, and fever. TECHNIQUE: Frontal and lateral views of the chest were obtained. COMPARISON: Chest view on 12/08/2020, CT abdomen and pelvis 11/03/2020 FINDINGS: A calcified right lung nodule is consistent with old granulomatous disease. No pleural effu danay or pneumothorax. The heart size is normal. IMPRESSION: 1. No acute cardiopulmonary disease. Reviewed, dictated and finalized at location [] Y INTERVENTIONIST
[2024-05-23 08:24] VITALS: BP 147/87; PULSE 130; RESP 24; TEMP 38.4; O2SAT 100
[2024-05-23] MEDS: ACETAMINOPHEN 500 MG TABLET 1000 MG PO (09:19)
[2024-05-23 09:20] LABS: Influenza A QL RT-PCR Positive (Negative); Influenza B QL RT-PCR Negative (Negative); RSV RNA, RT-PCR Negative (Negative); SARS-CoV-2 RNA PCR Negative (Negative)
--- NOTE | 2024-05-23 09:27 | ED_ITS ---
HPI - General Adult General Chief complaint: Upper Respiratory Infection Stated complaint: cough, fever, SOB Time Seen by Provider: 05/23/24 08:28 Source: patient Mode of arrival: ambulatory Limitations: no limitations History of Present Illness HPI narrative: 29-year-old with a history of asthma here with the complaints of cough, congestion, fever, body aches for past 2 days. She also complains of headache. Denies any nausea or vomiting. Onset (ago): day(s) (2) Severity: moderate Quality: aching Pain Consistency: constant Relieving factors: none Exacerbating factors: none Associated symptoms: fever/chills and shortness of breath Related Data Home Medications ?Medication ?Instructions ?Recorded ?Confirmed ?Last Taken ?Type desogestrel-e.estradiol 0.15 1 tablet PO DAILY 02/16/21 03/03/21 Unknown History mg-0.02 mg(21)/e.estrad 0.01 mg(5) tablet (Viorele ()) fluticasone propionate 50 1 spray intranasal DAILY 03/03/21 03/03/21 Unknown History mcg/actuation nasal spray,suspension Allergies Allergy/AdvReac Type Severity Reaction Status Date / Time No Known Allergies Allergy Verified 05/23/24 08:29 Review of Systems Review of Systems: All systems reviewed & are unremarkable except as noted in HPI and below Constitutional: Constitutional: Reports no additional constitutional complaints Eyes: Eyes: Reports no additional eye complaints ENT: Reports system reviewed and no additional complaints, except as documented Cardiovascular: Cardiovascular: Reports no additional cardiovascular complaints Respiratory: Respiratory: Reports as per HPI Gastrointestinal: Gastrointestinal: Reports no additional gastrointestinal complaints Genitourinary: Genitourinary: Reports no additional female genitourinary complaints Musculoskeletal: Musculoskeletal: Reports no additional musculoskeletal complaints Integumentary/Breasts: Skin/Breast: Reports system reviewed and no additional complaints, except as docu PMFSH Past Medical History Medical History Abscess GERD without esophagitis Fatigue Chronic daily headache Surgical History Surgical History H/O dilation and curettage History of laparoscopy Family History Family History Grandparent Family history of thyroid disease Hypertension Family history of elevated blood lipids Acute myocardial infarction Mother Family history of elevated blood lipids Social History Social History Smoking status: Former smoker Smoking end date: 05/25/11 Alcohol intake: current Substance use type: marijuana Gender identity (if verbalized by the patient): Female Exam Narrative: GENERAL: Well-appearing, well-nourished, and in no acute distress. HEAD: Normocephalic, atraumatic. EYES: PERRLA and EOMI. NECK: Supple. CHEST: Clear to auscultation. No respiratory distress. HEART: Regular rate and rhythm. No murmur heard. Normal peripheral pulses. EXTREMITIES: Normal range of motion. No edema. SKIN: Warm, dry, no rash. NEURO: No focal deficits. Alert and oriented x3. PSYCH: Normal mood and affect. Course Course Emergency Course: Informed patient about her lab work, chest x-ray findings. Advised her to take Tamiflu as prescribed. Drink plenty of fluids, rest Vital Signs Vital signs: Vital Signs Temperature 38.4 C H 05/23/24 08:24 Pulse Rate 130 H 05/23/24 08:24 Respiratory Rate 24 H 05/23/24 08:24 Blood Pressure 147/87 H 05/23/24 08:24 Pulse Oximetry 100 05/23/24 08:24 Oxygen Delivery Room Air 05/23/24 08:24 Temperature 38.4 C H 05/23/24 08:24 Pulse Rate 130 H 05/23/24 08:24 Respiratory Rate 24 H 05/23/24 08:24 Blood Pressure 147/87 H 05/23/24 08:24 Pulse Oximetry 100 05/23/24 08:24 Oxygen Delivery Room Air 05/23/24 08:24 Medical Decision Making MDM Narrative Medical decision making narrative: 29-year-old with a history of asthma now having cough congestion and fever with do a chest x-ray to rule out pneumonia along with COVID RSV influenza screen. Differential Diagnosis Differential Diagnosis: Bronchitis, pneumonia, viral syndrome Medical Records Medical records reviewed: Yes I reviewed the external patient's medical records. Vital Signs Vital Signs: Vital Signs Temperature 38.4 C H 05/23/24 08:24 Pulse Rate 130 H 05/23/24 08:24 Respiratory Rate 24 H 05/23/24 08:24 Blood Pressure 147/87 H 05/23/24 08:24 Pulse Oximetry 100 05/23/24 08:24 Oxygen Delivery Room Air 05/23/24 08:24 Temperature 38.4 C H 05/23/24 08:24 Pulse Rate 130 H 05/23/24 08:24 Respiratory Rate 24 H 05/23/24 08:24 Blood Pressure 147/87 H 05/23/24 08:24 Pulse Oximetry 100 05/23/24 08:24 Oxygen Delivery Room Air 05/23/24 08:24 Lab Data Labs: Lab Results 05/23/24 Range/Units 08:33 Influenza A (RT-PCR) Positive A (Negative) Influenza B (RT-PCR) Negative (Negative) RSV (RT-PCR) Negative (Negative) SARS-CoV-2 RNA (RT-PCR) Negative (Negative) Imaging Data Radiologist's impression: ITS Impressions Chest X-Ray 05/23/24 09:10 IMPRESSION: 1. No acute cardiopulmonary disease. Discharge Plan Discharge Clinical Impression: Influenza A Patient Disposition: Home, Self-Care Condition: Stable Instructions: Influenza (ED) Additional Instructions: Drink more fluids, rest take Tylenol ibuprofen for body aches and fever take Tamiflu as prescribed. Patient Language: [place] Prescriptions: New oseltamivir [Tamiflu] 75 mg capsule 75 mg PO Q12H 5 Days Qty: 10 0RF No Action desog-e.estradiol/e.estradiol [Viorele (28)] 0.15-0.02 mgx21 /0.01 mg x 5 tablet 1 tablet PO DAILY albuterol sulfate 90 mcg/actuation HFA aerosol inhaler 2 puff INHALATION QID PRN (Reason: shortness of breath or wheezing) Qty: 8 0RF fluticasone propionate [Flonase] 50 mcg/actuation [place],Suspension 1 spray INTRANASAL DAILY cetirizine-pseudoephedrine [Zyrtec-D] 5-120 mg tablet extended release 12 hr 1 tablet PO Q12H PRN (Reason: nasal congestion) Qty: 12 0RF codeine-guaifenesin [Virtussin AC] 10-100 mg/5 mL liquid 5 ml PO Q6H PRN (Reason: cough) Qty: 120 0RF doxycycline monohydrate 100 mg tablet 100 mg PO BID 7 Days Qty: 14 0RF lidocaine HCl [Lidocaine Viscous] 2 % solution 5 ml MUCOUS MEM QID PRN (Reason: pain) Qty: 100 0RF Rx Instructions: Gargle and spit Follow-up/Referrals: Lupillo Olmos MD [Physician] - UNKNOWN,DOCTOR [Primary Care Provider] - Time of Disposition: 09:36
[2024-05-23 09:46] VITALS: BP 140/87; PULSE 110; RESP 20; TEMP 37.7; O2SAT 100
--- OUTSIDE RECORDS SUMMARY | 2024-05-30 12:54 | XMS_ITS | Encounter Summary ---
Author Organization [facility] Health Address [address] [place] [address] Care Team Providers Care Cement Side Laster Name Role Phone Tanner Shaw MD Primary Care Provider [phone] Encounter Details Date Type Department Care Team (Latest Contact Info) Description 07/04/2020 Travel Social History Tobacco Use Types Packs/Day Years Used Date Smoking Tobacco: Some Days Smokeless Tobacco: Never Alcohol Use Standard Drinks/Week Comments Never 0 (1 standard drink = 0.6 oz pur e alcohol) AUDIT-C Answer Date Recorded Frequency of Alcohol Consumption Never 07/04/2020 Average Number of Drinks Not on file 021 Frequency of Binge Drinking Not on file 06/25 Sex and Gender Information Value Date Recorded Sex Assigned at Not on file Gender Identity Female 04/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 No / Unsure 07/04/2020 4:19 PM HAIRSPRING FABRICATION SUPERVISOR documented as of this encounter Plan of Treatment Not on file documented as of this encounter Visit Diagnoses Not on filedocumented in this encounter Additional Health Concerns Infection Onset Date Last Indicated Resolved Time COVID-19 Under Investigation 07/04/2020 07/04/2020 07/04/2020 6:13 PM HAIRSPRING FABRICATION SUPERVISOR COVID-19 Under Investigation 07/04/2020 07/04/2020 07/06/2020 2:11 PM HAIRSPRING FABRICATION SUPERVISOR documented as of this encounter Care Teams Cement Side Laster Relationship Specialty Start Date End Date Tanner Shaw MD [address] [place] [address] PCP - General Family Medicine 04/04/19 documented as of this encounter
--- OUTSIDE RECORDS SUMMARY | 2024-05-30 12:54 | XMS_ITS | Encounter Summary ---
Author Organization [facility] Health Address [address] 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 No / Unsure 10/13/2020 12:26 PM CDT documented as of this encounter Plan of Treatment Not on file documented as of this encounter Visit Diagnoses Not on filedocumented in this encounter Additional Health Concerns Infection Onset Date Last Indicated Resolved Time COVID-19 Under Investigation 10/13/2020 10/13/2020 10/13/2020 12:49 PM CDT documented as of this encounter Care Teams Citrus Fruit Colorer Relationship Specialty Start Date End Date Tanner Shaw MD [address] [place] [address] PCP - General Family Medicine 04/04/19 documented as of this encounter
--- OUTSIDE RECORDS SUMMARY | 2024-05-30 12:54 | XMS_ITS | Encounter Summary ---
Author Organization [facility] Health Address [address] 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 No / Unsure 12/05/2020 10:55 AM CDT documented as of this encounter Plan of Treatment Not on file documented as of this encounter Visit Diagnoses Not on filedocumented in this encounter Care Teams Cane Flume Watchman Relationship Specialty Start Date End Date Tanner Shaw MD [address] [place] [address] PCP - General Family Medicine 04/04/19 documented as of this encounter
--- OUTSIDE RECORDS SUMMARY | 2024-05-30 12:54 | XMS_ITS | Encounter Summary ---
Author Organization [facility] Address [address] 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 No / Unsure 10/13/2020 12:26 PM CDT documented as of this encounter Last Filed Vital Signs Vital Sign Reading Time Taken Comments Blood Pressure 124/84 10/13/2020 12:39 PM CDT Pulse 70 10/13/2020 12:39 PM CDT Temperature 36.9 ??C (98.4 ??F) 10/13/2020 12:39 PM C DT Respiratory Rate 20 10/13/2020 12:39 PM CDT Oxygen Saturation 99% 10/13/2020 12:39 PM CDT Inhaled Oxygen Concentration - - Weight - - Height - - Body Mass Index - - documented in this encounter Patient Instructions * Patient Instructions* Franky Jose APRN-CNP - 10/13/2020 12:49 PM CDT You have been diagnosed with a viral infection. -Viral infections do not improve with antibiotics. -Viral symptoms can linger from 7-14 days -The color of discharge does not always reflect the need for an antibiotic, even during a viral illness it is normal for drainage to change from yellow to green at times. -Please refer to the CDC Get Smart (cdc.gov/getsmart) campaign for more details. There are many OTC medications and supportive care measures you can try to treat your symptoms until your symptoms resolve. -Tylenol or Ibuprofen for aches, pains. Take per package directions -Antihistamines like Claritin or Benadryl as needed for drainage. Take per package directions -Delsym as needed for coughing. Follow package directions -Frequent cough drops and lozenges -Increase fluids, especially decaffeinated ones -Sleep with head of bed raised to promote drainage -Avoid spreading the virus by remaining at home and away from others until you are fever-free (temperature below 100) for 24 hours. Good handwashing and covering your mouth when coughing are also important. If you are not improving or worsening in the next 5-7 days you must RETURN to the clinic, go to your PCP, or Urgent Care/ER to be SEEN and reevaluated. No further prescriptions or refills will be given by phone without another evaluation. If you develop a high fever 103+, neck stiffness, trouble breathing, chest pain, or other life threatening symptoms GO TO THE ER IMMEDIATELY. documented in this encounter Progress Notes * Franky Jose APRN-CNP - 10/13/2020 12:39 PM CDT Subjective: Amira Adams is a 25 year old female who presents for evaluation: Chief Complaint Patient presents with ??? Fever Primary Care Physician is Tanner Shaw MD. Symptoms include congestion, fever, cough and body aches, chills. Onset of symptoms was 3 days ago, gradually worsening since that time. congestion, non productive cough, achiness, low grade fever. She is drinking plenty of fluids. Evaluation to date: none. Treatment to date: none No Known Allergies No outpatient medications have been marked as taking for the 10/13/20 encounter (Office Visit) with Provider, Kayode Pugh. Past Medical History: Diagnosis Date ??? Anxiety and depression ??? Constipation ??? Insomnia ??? Interstitial cystitis ??? Migraine There is no problem list on file for this patient. Past Surgical History: Procedure Laterality Date ??? PILONIDAL CYST RESECTION ??? Sherman Tooth Extraction Social History Socioeconomic History ??? Marital status: Single Spouse name: Not on file ??? Number of children: Not on file ??? Years of education: Not on file ??? Highest education level: Not on file Occupational History ??? Not on file Tobacco Use ??? Smoking status: Current Some Day Smoker ??? Smokeless tobacco: Never Used Vaping Use ??? Vaping Use: Never used Substance and Sexual Activity ??? Alcohol use: Never ??? Drug use: Yes Types: Marijuana ??? Sexual activity: Not on file Other Topics Concern ??? Not on file Social History Narrative ??? Not on file Social Determinants of Health Financial Resource Strain: ??? Difficulty of Paying Living Expenses: Food Insecurity: ??? Worried About Running Out of Food in the Last Year: ??? Ran Out of Food in the Last Year: Transportation Needs: ??? Lack of Transportation (Medical): ??? Lack of Transportation (Non-Medical): Physical Activity: ??? Days of Exercise per Week: ??? Minutes of Exercise per Session: Stress: ??? Feeling of Stress : Social Connections: ??? Frequency of Communication with Friends and Family: ??? Frequency of Social Gatherings with Friends and Family: ??? Attends Shinto Services: ??? Active Member of Clubs or Organizations: ??? Attends Club or Organization Meetings: ??? Marital Status: Intimate Partner Violence: ??? Fear of Current or Ex-Partner: ??? Emotionally Abused: ??? Physically Abused: ??? Sexually Abused: Medications reviewed. Review of Systems Constitutional: Positive for fevers, chills, Negative for anorexia, rash. Ears, nose, mouth, and throat: Positive for sinus trouble, congestion, Negative for earaches bilaterally, vertigo, persistent sore throat Respiratory: Positive for acute cough, Negative for shortness of breath, dyspnea on exertion, pleuritic chest pain, asthma, wheezing Cardiovascular: Negative Gastrointestinal: Negative Neurological: Positive for headaches Objective: BP 124/84 (BP SITE: RIGHT ARM, BP POSITION: SITTING, BP CUFF SIZE: 11) Pulse 70 Temp 98.4 ??F (36.9??C) (Oral) Resp 20 SpO2 99% Skin: Physical Exam Exam General appearance: alert, cooperative, no distress Ears: canals clear, tympanic membranes normal, hearing intact to voice Nose: nares open; no septal deviation is noted, clear rhinorrhea, maxillary tenderness bilaterally Throat: no mucous membrane abnormalities Neck: range of motion is intact, no masses, thyroid not enlarged, no adenopathy Lungs: breath sounds normal and symmetric; no rales or wheezes Heart: regular rhythm, normal S1 and S2, without murmurs, gallops or rubs Neurologic: mental status normal; alert and oriented X 3; cranial nerves II - XII are grossly intact Recent Results (from the past 24 hour(s)) SARS-COV-2 (COVID-19)+INFLU A+B AG (AMB) POC Collection Time: 10/13/20 12:44 PM Result Value Ref Range Influenza A Antigen Rapid Negative Negative Influenza B Antigen Rapid Negative Negative SARS-CoV-2 Ag Negative Negative COVID Internal Control Acceptable Acceptable Lot # [id number] Expiration Date [id number] Instrument Serial Number [id number] Assessment: . Encounter Diagnoses Name Primary? Upper respiratory tract infection, unspecified type Yes Plan: Discussed dx and tx of URIs You have been diagnosed with a viral infection. -Viral infections do not improve with antibiotics. -Viral symptoms can linger from 7-14 days -The color of discharge does not always reflect the need for an antibiotic, even during a viral illness it is normal for drainage to change from yellow to green at times. -Please refer to the CDC Get Smart (cdc.gov/getsmart) campaign for more details. There are many OTC medications and supportive care measures you can try to treat your symptoms until your symptoms resolve. -Tylenol or Ibuprofen for aches, pains. Take per package directions -Antihistamines like Claritin or Benadryl as needed for drainage. Take per package directions -Delsym as needed for coughing. Follow package directions -Frequent cough drops and lozenges -Increase fluids, especially decaffeinated ones -Sleep with head of bed raised to promote drainage -Avoid spreading the virus by remaining at home and away from others until you are fever-free (temperature below 100) for 24 hours. Good handwashing and covering your mouth when coughing are also important. If you are not improving or worsening in the next 5-7 days you must RETURN to the clinic, go to your PCP, or Urgent Care/ER to be SEEN and reevaluated. No further prescriptions or refills will be given by phone without another evaluation. If you develop a high fever 103+, neck stiffness, trouble breathing, chest pain, or other life threatening symptoms GO TO THE ER IMMEDIATELY. Orders Placed This Encounter ??? SARS-COV-2 (COVID-19)+INFLU A+B AG (AMB) POC Order Specific Question: Release to patient Answer: Immediate Order Specific Question: Is the patient experiencing any symptoms consistent with COVID (eg. Fever,cough, shortness of breath)? Answer: Yes Order Specific Question: Date of symptoms onset? Answer: 10/10/2020 Order Specific Question: Symptoms as described by CDC. (Select all that apply) Answer: Chills [[id number]] Order Specific Question: Symptoms as described by CDC. (Select all that apply) Answer: Cough [[id number]] Order Specific Question: Symptoms as described by CDC. (Select all that apply) Answer: Feeling feverish [[id number]] Order Specific Question: Symptoms as described by CDC. (Select all that apply) Answer: Nasal congestion [[id number]] Order Specific Question: Symptoms as described by CDC. (Select all that apply) Answer: Muscle or body aches [[id number]] Order Specific Question: Symptoms as described by CDC. (Select all that apply) Answer: Headache [[id number]] Order Specific Question: Symptoms as described by CDC. (Select all that apply) Answer: Runny nose [[id number]] Order Specific Question: Symptoms as described by CDC. (Select all that apply) Answer: Fever over 100.4 F [[id number]] Order Specific Question: Hospitalized for COVID-19? Answer: No Order Specific Question: Admitted to ICU for COVID-19? Answer: No Order Specific Question: First COVID-19 test? 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 Answer: No Order Specific Question: Resident in a congregate care setting? Answer: No Order Specific Question: ? Answer: No Continue to follow up with Tanner Shaw MD as directed. After Visit Summary reviewed with patient. The patient indicates understanding of these issues and agrees with the plan. Patient discharged to Home .[address] 10/13/2020 12:56 PM documented in this encounter Plan of Treatment Not on file documented as of this encounter Procedures Procedure Name Priority Date/Time Associated Diagnosis Comments SARS-COV-2 (COVID-19)+INFLU A+B AG (AMB) POC Routine 10/13/2020 12:44 PM CDT Upper respiratory tract infection, unspecified type documented in this encounter Results * SARS-COV-2 (COVID-19)+INFLU A+B AG (AMB) POC (10/13/2020 12:44 PM CDT) Influenza A Antigen Rapid Negative Negative [facility] Influenza B Antigen Rapid Negative Negative [facility] SARS-CoV-2 Ag Negative Negative [facility] COVID Internal Control Acceptable Acceptable [facility] Lot # [id number] [facility] Expiration Date [id number] [facility] Instrument Serial Number [id number] [facility] Microbiology SPECIMEN FROM NASAL FOSSAE / Unknown 10/13/2020 12:44 PM CDT Wilkins L Klostermann [employer]ER[employer] 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 - POINT OF CARE ORDERABLES [place] [address], [facility] [phone] documented in this encounter Visit Diagnoses Diagnosis Upper respiratory tract infection, unspecified type- Primary documented in this encounter Additional Health Concerns Infection Onset Date Last Indicated Resolved Time COVID-19 Under Investigation 10/13/2020 10/13/2020 10/13/2020 12:49 PM CDT documented as of this encounter Care Teams Bingo Caller Relationship Specialty Start Date End Date Tanenr Shaw MD [address] [place] [address] PCP - General Family Medicine 04/04/19 documented as of this encounter
--- OUTSIDE RECORDS SUMMARY | 2024-05-30 12:54 | XMS_ITS | Encounter Summary ---
Author Organization [facility] Address [address] [place] [address] Care Team Providers Care Outside Energy Sales Representatives Name Role Phone Tanner Shaw MD Primary Care Provider [phone] Reason for Visit * Reason Comments Sore Throat Encounter Details Date Type Department Care Team (Late st Contact Info) Description 12/05/2020 11:00 AM CDT Office Visit [facility] AT [address] [phone] Provider, [facility] Acute sinusitis, recurrence not specified, unspecified location (Primary Dx); Acute bronchitis, unspecified organism; Acute otitis media, unspecified otitis media type Social History Tobacco Use Types Packs/Day Years [...] file Gender Identity Female 04/04/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 No / Unsure 12/05/2020 10:55 AM CDT documented as of this encounter Last Filed Vital Signs Vital Sign Reading Time Taken Comments Blood Pressure 110/70 12/05/2020 11:27 AM CDT Pulse 85 12/05/2020 11:27 AM CDT Temperature 36.8 ??C (98.3 ??F) 12/05/2020 11:27 AM C DT Respiratory Rate - - Oxygen Saturation - - Inhaled Oxygen Concentration - - Weight 83 kg (183 lb) 12/05/2020 11:27 AM CDT Height 166.4 cm (5' 5.5 ) 12/05/2020 11:27 AM CD T Body Mass Index 29.99 12/05/2020 11:27 AM CDT documented in this encounter Patient Instructions * Patient Instructions* Jerome Zabala APRN-TEACHER ASSISTANT - 12/05/2020 11:34 AM CDT Images from the original note were not included. Patient Education Sinusitis WHAT YOU NEED TO KNOW: What is sinusitis? Sinusitis is inflammation or infection of your sinuses. Sinusitis is most often caused by a virus. Acute sinusitis may last up to 12 weeks. Chronic sinusitis lasts longer than 12 weeks. Recurrent sinusitis means you have 4 or more infections in 1 year. What increases my risk for sinusitis? ?? Medical conditions, such as an upper respiratory infection, allergies, asthma, or cystic fibrosis ?? Dental infections or procedures, such as gum infections, tooth decay, or a root canal ?? Smoking or exposure to secondhand smoke ?? Abnormal sinus structure, such as nasal growths, swollen tonsils, or a deviated septum ?? A weak immune system, from diseases such as diabetes or HIV What are the signs and symptoms of sinusitis? ?? Fever ?? Pain, pressure, redness, or swelling around the forehead, cheeks, or eyes ?? Thick yellow or green discharge from your nose ?? Tenderness when you touch your face over your sinuses ?? Dry cough that happens mostly at night or when you lie down ?? Headache and face pain that is worse when you lean forward ?? Tooth pain, or pain when you chew How is sinusitis diagnosed? Your healthcare provider will examine you and ask about your symptoms. He or she may check inside your nose using a nasal speculum. You may need any of the following tests: ?? A sample of mucus from your nose may show what germ is causing your infection. ?? A CT or MRI of your head may show the mucous lining of your sinuses. You may be given contrast liquid to help your sinuses show up better in the pictures. Tell your healthcare provider if you haveever had an allergic reaction to contrast liquid. Do not enter the MRI room with anything metal. Metal can cause serious injury. Tell your healthcare provider if you have any metal in or on your body. How is sinusitis treated? Your symptoms may go away on their own. Your healthcare provider may recommend watchful waiting for up to 10 days before starting antibiotics. You may need any of the following: ?? Acetaminophen decreases pain and fever. It is available without a doctor's order. Ask how much to take and how often to take it. Follow directions. Read the labels of all other medicines you are using to see if they also contain acetaminophen, or ask your doctor or pharmacist. Acetaminophen can cause liver damage if not taken correctly. Do not use more than 4 grams (4,000 milligrams) total of acetaminophen in one day. ?? NSAIDs , such as ibuprofen, help decrease swelling, pain, and fever. This medicine is available with or without a doctor's order. NSAIDs can cause stomach bleeding or kidney problems in certain people. If you take blood thinner medicine, always ask your healthcare provider if NSAIDs are safe foryou. Always read the medicine label and follow directions. ?? Nasal steroid sprays may help decrease inflammation in your nose and sinuses. ?? Decongestants help reduce swelling and drain mucus in the nose and sinuses. They may help you breathe easier. ?? Antihistamines help dry mucus in the nose and relieve sneezing. ?? Antibiotics help treat or prevent a bacterial infection. How can I manage my symptoms? ?? Rinse your sinuses as directed. Use a sinus rinse device to rinse your nasal passages with a saline (salt water) solution or distilled water. Do not use tap water. This will help thin the mucus inyour nose and rinse away pollen and dirt. It will also help reduce swelling so you can breathe normally. ?? Use a humidifier to increase air moisture in your home. This may make it easier for you to breathe and help decrease your cough. ?? Sleep with your head elevated. Place an extra pillow under your head before you go to sleep to help your sinuses drain. ?? Drink liquids as directed. Ask your healthcare provider how much liquid to drink each day and which liquids are best for you. Liquids will thin the mucus in your nose and help it drain. Avoid drinks that contain alcohol or caffeine. ?? Do not smoke, and avoid secondhand smoke. Nicotine and other chemicals in cigarettes and cigars can make your symptoms worse. Ask your healthcare provider for information if you currently smoke and need help to quit. E-cigarettes or smokeless tobacco still contain nicotine. Talk to your healthcare provider before you use these products. How can I help prevent the spread of germs? ?? Wash your hands often with soap and water. Wash your hands after you use the bathroom, change a child's diaper, or sneeze. Wash your hands before you prepare or eat food. ?? Stay away from people who are sick. Some germs spread easily and quickly through contact. When should I seek immediate care? ?? You have trouble breathing or wheezing that is getting worse. ?? You have a stiff neck, a fever, or a bad headache. ?? You cannot open your eye. ?? Your eyeball bulges out or you cannot move your eye. ?? You are more sleepy than normal, or you notice changes in your ability to think, move, or talk. ?? You have swelling of your forehead or scalp. When should I call my doctor? ?? You have vision changes, such as double vision. ?? Your eye and eyelid are red, swollen, and painful. ?? Your symptoms do not improve or go away after 10 days. ?? You have nausea and are vomiting. ?? Your nose is bleeding. ?? You have questions or concerns about your condition or care. CARE AGREEMENT: You have the right to help plan your care. Learn about your health condition and how it may be treated. Discuss treatment options with your healthcare providers to decide what care you want to receive. You always have the right to refuse treatment. The above information is an teaching aide only. It is not intended as medical advice for individual conditions or treatments. Talk to your doctor, nurse or pharmacist before following any medical regimen to see if it is safe and effective for you. ?? Copyright [employer] 2020 Information is for End User's use only and may not be sold, redistributed or otherwise used for commercial purposes. All illustrations and images included in CareNotes?? are the copyrighted property of [employer] or [employer] documented in this encounter Progress Notes * Jerome Zabala APRN-CNP - 12/05/2020 11:02 AM CDT [facility] Amira Adams is a 25 year old female who presents for evaluation: Chief Complaint Patient presents with ??? Sore Throat Primary Care Physician is Tanner Shaw MD. SUBJECTIVE: C/o sore throat, sinus pressure/pain, cough, guy's, congestion, for the past for over a week. Covid vaccine; last dose in the end of the month Exposed to Strep Worsening causes: Swallowing At home tx. Cough drops, Past Medical History: Diagnosis Date ??? Anxiety and depression ??? Constipation ??? GERD (gastroesophageal reflux disease) ??? Insomnia ??? Interstitial cystitis ??? Migraine There is no problem list on file for this patient. Current Outpatient Medications on File Prior to Visit Medication Sig Dispense Refill ??? amitriptyline (ELAVIL) 10 MG tablet Take 10 mg by mouth at bedtime ??? cimetidine (CIMETIDINE 200) 200 MG tablet Take 1 mg by mouth 2 times daily ??? Docusate Sodium (COLACE PO) ??? Drospirenone-Ethinyl Estradiol (RAMON PO) ??? Escitalopram Oxalate (LEXAPRO PO) ??? Ferrous Sulfate (IRON) 28 MG ??? Fexofenadine HCl (DANG ALLERGY PO) ??? Multiple Vitamins-Minerals (MULTIVITAL PO) ??? Pantoprazole Sodium (PROTONIX PO) ??? rizatriptan (MAXALT) 10 MG tablet Take 10 mg by mouth daily as needed - may repeat one time forMigraine N ??? vitamin D, cholecalciferol, 50 MCG (2000 UT) tablet Take 2,000 Units by mouth once daily No current facility-administered medications on file prior to visit. Past Surgical History: Procedure Laterality Date ??? ENDOMETRIAL ABLATION ??? PILONIDAL CYST RESECTION ??? [place] Tooth Extraction Social History Socioeconomic History ??? Marital status: Single Spouse name: Not on file ??? Number of children: Not on file ??? Years of education: Not on file ??? Highest education level: Not on file Occupational History ??? Not on file Tobacco Use ??? Smoking status: Former Smoker ??? Smokeless tobacco: Never Used Vaping [...] Gatherings with Friends and Family: ??? Attends Evangelical Services: ??? Active Member of Clubs or Organizations: ??? Attends Club or Organization Meetings: ??? Marital Status: Intimate Partner Violence: ??? Fear of Current or Ex-Partner: ??? Emotionally Abused: ??? Physically Abused: ??? Sexually Abused: No family history on file. Current Outpatient Medications Medication Sig Dispense Refill ??? albuterol HFA (PROVENTIL;VENTOLIN;PROAIR) 108 (90 Base) MCG/ACT inhaler Inhale 2 (two) puffs bymouth every 6 hours as needed 1 Inhaler 0 ??? amitriptyline (ELAVIL) 10 MG tablet Take 10 mg by mouth at bedtime ??? amoxicillin-clavulanate (AUGMENTIN) 875-125 MG tablet Take 1 (one) tablet by mouth 2 times daily with morning and evening meal for 10 days 20 tablet 0 ??? cimetidine (CIMETIDINE 200) 200 MG tablet Take 1 mg by mouth 2 times daily ??? Docusate Sodium (COLACE PO) ??? Drospirenone-Ethinyl Estradiol (RAMON PO) ??? Escitalopram Oxalate (LEXAPRO PO) ??? Ferrous Sulfate (IRON) 28 MG ??? Fexofenadine HCl (DANG ALLERGY PO) ??? Multiple Vitamins-Minerals (MULTIVITAL PO) ??? Pantoprazole Sodium (PROTONIX PO) ??? rizatriptan (MAXALT) 10 MG tablet Take 10 mg by mouth daily as needed - may repeat one time forMigraine N ??? vitamin D, cholecalciferol, 50 MCG (2000 UT) tablet Take 2,000 Units by mouth once daily No current facility-administered medications for this visit. No Known Allergies REVIEW OF SYSTEMS: Review of Systems HENT: Positive for sore throat. Respiratory: Positive for cough. Negative for hemoptysis, sputum production, shortness of breath and wheezing. Cardiovascular: Positive for chest pain. Gastrointestinal: Negative. Musculoskeletal: Negative. Neurological: Positive for headaches. migraines, increasing lately . OBJECTIVE: General appearance: alert, pleasant and in no distress. BP 110/70 (BP SITE: RIGHT ARM, BP POSITION: SITTING, BP CUFF SIZE: 11) Pulse 85 Temp 98.3 ??F (36.8??C) (Axillary) Ht 1.664 m (5' 5.5 ) Wt 83 kg (183 lb) BMI 29.99 kg/m2 Physical Exam Constitutional: Appearance: Normal appearance. HENT: Head: Comments: Nares and posterior buccal mucosa erythema, edema, Tender sinuses with palpation Lt tm moderate/sig erythema, bulging, fluid beyond tm Moderate amt of cerumen. Bilaterally, Tm's intact. Cardiovascular: Rate and Rhythm: Normal rate and regular rhythm. Pulses: Normal pulses. Heart sounds: Normal heart sounds. Pulmonary: Effort: No respiratory distress. Breath sounds: No stridor. Wheezing present. No rhonchi or rales. Comments: Mild wheezing with coughing; bilaterally Chest: Chest wall: No tenderness. Abdominal: General: Abdomen is flat. Bowel sounds are normal. Palpations: Abdomen is soft. Musculoskeletal: Cervical back: Normal range of motion and neck supple. Neurological: Mental Status: She is alert. Psychiatric: Comments: Pt continually was texting during visit. Senior Portfolio Manager asked if she would put her phone down to avoid distractions and concentrate on her present illnesses and physical complaints. Pt stated she would, but then returned to texting. Recent Results (from the past 24 hour(s)) STREP A SCREEN - POINT OF CARE (AMB) STL Collection Time: 12/05/20 11:36 AM Result Value Ref Range Strep A Rapid POCT Negative Negative Strep A Internal Control Present Lot # [id number] Expiration Date 09/21/22 ASSESSMENT: Encounter Diagnoses Name Primary? Acute sinusitis, recurrence not specified, unspecified location Yes ??? Acute bronchitis, unspecified organism ??? Acute otitis media, unspecified otitis media type PLAN: Orders Placed This Encounter ??? STREP A SCREEN - POINT OF CARE (AMB) STL Order Specific Question: Release to patient Answer: Immediate ??? albuterol HFA (PROVENTIL;VENTOLIN;PROAIR) 108 (90 Base) MCG/ACT inhaler Sig: Inhale 2 (two) puffs by mouth every 6 hours as needed Dispense: 1 Inhaler Refill: 0 ??? amoxicillin-clavulanate (AUGMENTIN) 875-125 MG tablet Sig: Take 1 (one) tablet by mouth 2 times daily with morning and evening meal for 10 days Dispense: 20 tablet Refill: 0 I have spent a total of 25 minutes. Time was spent reviewing medical history, performing physical exam, documenting, counseling/educating, reviewing plan of care, and tx. Senior Portfolio Manager discussed with pt the chest pain and migraines must be f/u with An UC or ED, or primary care provider; and to go to the ED if chest pain does not improve or go away; pt agreed to f/u with these issues as discussed. Handout given Pt stated [facility]covid [facility] documented in this encounter Plan of Treatment Not on file documented as of this encounter Procedures Procedure Name Priority Date/Time Associated Diagnosis Comments STREP A SCREEN - POINT OF CARE (AMB) STL Routine 12/05/2020 11:36 AM CDT Acute sinusitis, recurrence not specified, unspecified location documented in this encounter Results * STREP A SCREEN - POINT OF CARE (AMB) STL (12/05/2020 11:36 AM CDT) Strep A Rapid POCT Negative Negative [facility] Strep A Internal Control Present [facility] Lot # [id number] [facility] Expiration Date 09/21/22 [facility] Throat ENTIRE THROAT (SURFACE REGION OF NECK) / Unknown 12/05/2020 11:36 AM CDT Jerome Zabala MECHANIC ASSISTANT-TEACHER ASSISTANT LAB - POINT OF CARE ORDERABLES Performing Organization Address City/State/[facility] Co de Phone Number [facility] [address] [phone] documented in this encounter Visit Diagnoses Diagnosis Acute sinusitis, recurrence not specified, unspecified location- Primary Acute bronchitis, unspecified organism Acute otitis media, unspecified otitis media type documented in this encounter Care Teams Outside Energy Sales Representatives Relationship Specialty Start Date End Date Tanner Shaw MD [address] [place] [address] PCP - General Family Medicine 04/04/19 documented as of this encounter
--- OUTSIDE RECORDS SUMMARY | 2024-05-30 12:54 | XMS_ITS | Encounter Summary ---
Author Organization [facility] Address [address] [place] [address] Care Team Providers Care Videotape Editor Name Role Phone Tanner Shaw MD Primary Care Provider [phone]- [phone] Reason for Visit * Reason Onset Date Comments Follow-up 04/06/2019 Encounter Details Date Type Department Care Team (Late st Contact Info) Description 04/06/2019 Telephone [facility] AT [address] [phone] Provider, 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 LM to call back if any questions or concerns. ETING INTELLIGENCE MANAGER documented in this encounter Plan of Treatment Not on file documented as of this encounter Visit Diagnoses Not on filedocumented in this encounter Care Teams Videotape Editor Relationship Specialty Start Date End Date Tanner Shaw MD [address] [place] [address] PCP - General Family Medicine 04/04/19 documented as of this encounter
--- OUTSIDE RECORDS SUMMARY | 2024-05-30 12:54 | XMS_ITS | Patient Health Summary ---
Author Organization [facility] Address [address] [place] [address] Care Team Providers Care Feed Blender Name Role Phone Tanner Shaw MD Primary Care Provider [phone]- [phone] Note from [facility],non-owned Affiliates and Associated Physician Practices is amultiple site organization consisting of ambulatory clinics and hospital sitesin [place], [place], [place]. This disclosure is being madepursuant to the Care Everywhere program and may not contain all information available regarding this patient. Last updated 18.[facility] Allergies No known active allergies Medications * Be aware that medications may not be up to date on this document. Alwaysverify current medications with the patient. * cimetidine (CIMETIDINE 200) 200 MG tablet Take 1 mg by mouth 2 times daily * Drospirenone-Ethinyl Estradiol (RAMON PO) * Multiple Vitamins-Minerals (MULTIVITAL PO) * Docusate Sodium (COLACE PO) * vitamin D, cholecalciferol, 50 MCG (2000 UT) tablet Take 2,000 Units by mouth once daily * Ferrous Sulfate (IRON) 28 MG * Escitalopram Oxalate (LEXAPRO PO) * Fexofenadine HCl (DANG ALLERGY PO) * rizatriptan (MAXALT) 10 MG tablet Take 10 mg by mouth daily as needed - may repeat one time for Migraine N * Pantoprazole Sodium (PROTONIX PO) * amitriptyline (ELAVIL) 10 MG tablet Take 10 mg by mouth at bedtime * albuterol HFA (PROVENTIL;VENTOLIN;PROAIR) 108 (90 Base) MCG/ACT inhaler (Started 12/05/2020) Inhale 2 (two) puffs by mouth every 6 hours as needed Active Problems No known active problems Social History Tobacco Use Types Packs/Day Years [...] file Gender Identity Female 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 Sexual Orientation Not on file Last Filed Vital Signs Vital Sign Reading Time Taken Comments Blood Pressure 110/70 12/05/2020 11:27 AM CDT Pulse 85 12/05/2020 11:27 AM CDT Temperature 36.8 ??C (98.3 ??F) 12/05/2020 11:27 AM C DT Respiratory Rate 20 10/13/2020 12:39 PM CDT Oxygen Saturation 99% 10/13/2020 12:39 PM CDT Inhaled Oxygen Concentration - - Weight 83 kg (183 lb) 12/05/2020 11:27 AM CDT Height 166.4 cm (5' 5.5 ) 12/05/2020 11:27 AM CD T Body Mass Index 29.99 12/05/2020 11:27 AM CDT Procedures * STREP A SCREEN - POINT OF CARE (AMB) STL(Performed 12/05/2020) Performed for Acute sinusitis, recurrence not specified, unspecified location * SARS-COV-2 (COVID-19)+INFLU A+B AG (AMB) POC(Performed 10/13/2020) Performed for Upper respiratory tract infection, unspecified type * COVID-19 SARS-COV-2 PCR QUAL ([facility])(Performed 07/04/2020) Performed for Viral upper respiratory tract infection * STREP A SCREEN - POINT OF CARE (AMB) STL(Performed 07/04/2020) Performed for Viral upper respiratory tract infection * SARS-COV-2 (COVID-19)+INFLU A+B AG (AMB) POC(Performed 07/04/2020) Performed for Viral upper respiratory tract infection Results * STREP A SCREEN - POINT OF CARE (AMB) STL (12/05/2020 11:36 AM CDT) Only the most recent of2 resultswithin the time period is included. Strep A Rapid POCT Negative Negative [facility] Strep A Internal Control Present [facility] Lot # [id number] [facility] Expiration Date 09/21/22 [facility] Throat ENTIRE THROAT (SURFACE REGION OF NECK) / Unknown 12/05/2020 11:36 AM CDT Jerome Zabala STRIKER OUT[facility] LAB - POINT OF CARE ORDERABLES Performing Organization Address [facility] de Phone Number [facility] [address] [place] [address] * SARS-COV-2 (COVID-19)+INFLU A+B AG (AMB) POC (10/13/2020 12:44 PM CDT) Only the most recent of2 resultswithin the time period is included. Influenza A Antigen Rapid Negative Negative [facility] Influenza B Antigen Rapid Negative Negative [facility] SARS-CoV-2 Ag Negative Negative [facility] COVID Internal Control Acceptable Acceptable [facility] Lot # [id number] [facility] Expiration Date [id number] [facility] Instrument Serial Number [id number] [facility] Microbiology SPECIMEN FROM NASAL FOSSAE / Unknown 10/13/2020 12:44 PM CDT Franky Jose STRIKER OUT-[facility] LAB - POINT OF CARE ORDERABLES Performing Organization Address [facility] Co de Phone Number [facility] [address] [phone] * COVID-19 SARS-COV-2 PCR QUAL ([facility]) (07/04/2020 6:31 PM TRANSPORTATION MODELER) SARS-CoV-2 SAMIR Not Detected Not Detected [facility] Comment: This nucleic acid amplification test was developed and its performance characteristics determined by [employer]. Nucleic acid amplification tests include RT-PCR and TMA. This test has not been FDA cleared or approved. This test has been authorized by FDA under an Emergency Use Authorization (EUA). This test is only authorized for the duration of time the declaration that circumstances exist justifying the authorization of the emergency use of in vitro diagnostic tests for detection of SARS-CoV-2 virus and/or diagnosis of COVID-19 infection under section 564(b)(1) of the Act, 21 U.S.C. 360bbb-3(b) (1), unless the authorization is terminated or revoked sooner. When diagnostic testing is negative, the possibility of a false negative result should be considered in the context of a patient's recent exposures and the presence of clinical signs and symptoms consistent with COVID-19. An individual without symptoms of COVID-19 and who is not shedding SARS-CoV-2 virus would expect to have a negative (not detected) result in this assay. Microbiology SPECIMEN FROM NASOPHARYNGEAL STRUCTURE / Unknown 07/04/2020 6:31 PM TRANSPORTATION MODELER 07/05/2020 Narrative Resulting Agency Comment Lab Testing performed at: [facility] [address] ??[facility] [phone] Kassie Alex APRN-COMMUNICATIONS OFFICER LAB - MICROBIOLOG Y ORDERABLES [facility] INSURANCE BILL [address] [place] [address] Care Teams Feed Blender Relationship Specialty Start Date End Date Tanner Shaw MD [address] [place] [address] PCP - General Family Medicine 04/04/19
--- OUTSIDE RECORDS SUMMARY | 2024-05-30 12:54 | XMS_ITS | Encounter Summary ---
Author Organization [facility] Address [address] [place] [address] Care Team Providers Care Brick Tester Name Role Phone Tanner Shaw MD Primary Care Provider [phone] Reason for Visit * Reason Comments URI Mouth Lip Problem Encounter Details Date Type Department Care Team (Late st Contact Info) Description 07/04/2020 6:00 PM BRANCH GENERAL MANAGER Office Visit [facility] AT [address] [phone] Provider, [facility] Viral upper respiratory tract infection (Primary Dx); Oral candidiasis Social History Tobacco Use Types Packs/Day Years [...] file Gender Identity Female 04/04/2019 2:45 PM BRANCH GENERAL MANAGER Sexual Orientation Not on file COVID-19 Exposure Response Date Recorded In the last month, have you been in contact with someone who was confirmed or suspected to have Coronavirus / COVID-19? No / Unsure 07/04/2020 4:19 PM BRANCH GENERAL MANAGER documented as of this encounter Last Filed Vital Signs Vital Sign Reading Time Taken Comments Blood Pressure 128/80 07/04/2020 6:02 PM BRANCH GENERAL MANAGER Pulse 100 07/04/2020 6:02 PM BRANCH GENERAL MANAGER Temperature 37.3 ??C (99.2 ??F) 07/04/2020 6:02 PM CS T Respiratory Rate 18 07/04/2020 6:02 PM BRANCH GENERAL MANAGER Oxygen Saturation 99% 07/04/2020 6:02 PM BRANCH GENERAL MANAGER Inhaled Oxygen Concentration - - Weight 81.6 kg (180 lb) 07/04/2020 6:02 PM BRANCH GENERAL MANAGER Height 166.4 cm (5' 5.5 ) 07/04/2020 6:02 PM BRANCH GENERAL MANAGER Body Mass Index 29.5 07/04/2020 6:02 PM BRANCH GENERAL MANAGER documented in this encounter Patient Instructions * Patient Instructions* Kassie Alex APRN-VOICE SYSTEMS ENGINEER - 07/04/2020 6:13 PM BRANCH GENERAL MANAGER Images from the original note were not included. Patient Education Upper Respiratory Infection RIPRAP PLACER: An upper respiratory infection is also called a cold. Your nose, throat, ears, and sinuses may be affected. You are more likely to get a cold in the winter. Your risk of getting a cold may be increased if you smoke cigarettes or have allergies, such as hay fever. What causes a cold? A cold is caused by a virus. Many viruses can cause a cold, and each is contagious. This means the virus can be easily spread to another person when the sick person coughs or sneezes. The virus can also be spread if you touch an object the virus is on and then touch your eyes, mouth, or nose. Cold symptoms are usually worst for the first 3 to 5 days. You may have any of the following: ?? Runny or stuffy nose ?? Sneezing and coughing ?? Sore throat or hoarseness ?? Red, watery, and sore eyes ?? Fatigue (you feel more tired than usual) ?? Chills and fever ?? Headache, body aches, or sore muscles Call your local emergency number (911 in the [place]) if: ?? You have chest pain or trouble breathing. Seek care immediately if: ?? You have a fever over 102??F (39??C). Call your doctor if: ?? You have a low fever. ?? Your sore throat gets worse or you see white or yellow spots in your throat. ?? Your symptoms get worse after 3 to 5 days or are not better in 14 days. ?? You have a rash anywhere on your skin. ?? You have large, tender lumps in your neck. ?? You have thick, green, or yellow drainage from your nose. ?? You cough up thick yellow, green, or bloody mucus. ?? You have a bad earache. ?? You have questions or concerns about your condition or care. Treatment: Colds are caused by viruses and do not get better with antibiotics. Most people get better in 7 to 14 days. You may continue to cough for 2 to 3 weeks. The following may help decrease yoursymptoms: ?? Decongestants help reduce nasal congestion and help you breathe more easily. If you take decongestant pills, they may make you feel restless or not able to sleep. Do not use decongestant sprays for more than a few days. ?? Cough suppressants help reduce coughing. Ask your healthcare provider which type of cough medicine is best for you. ?? NSAIDs , such as ibuprofen, help decrease swelling, pain, and fever. NSAIDs can cause stomach bleeding or kidney problems in certain people. If you take blood thinner medicine, always ask your healthcare provider if NSAIDs are safe for you. Always read the medicine label and follow directions. ?? Acetaminophen decreases pain and fever. It [...] milligrams) total of acetaminophen in one day. Manage a cold: ?? Rest as much as possible. Slowly start to do more each day. ?? Drink more liquids as directed. Liquids will help thin and loosen mucus so you can cough it up. Liquids will also help prevent dehydration. Liquids that help prevent dehydration include water, fruit juice, and broth. Do not drink liquids that contain caffeine. Caffeine can increase your risk fordehydration. Ask your healthcare provider how much liquid to drink each day. ?? Soothe a sore throat. Gargle with warm salt water. Make salt water by dissolving ?? teaspoon salt in 1 cup warm water. You may also suck on hard candy or throat lozenges. You may use a sore throatspray. ?? Use a humidifier or vaporizer. Use a cool mist humidifier or a vaporizer to increase air moisture in your home. This may make it easier for you to breathe and help decrease your cough. ?? Use saline nasal drops as directed. These help relieve congestion. ?? Apply petroleum-based jelly around the outside of your nostrils. This can decrease irritation from blowing your nose. ?? Do not smoke. Nicotine and other chemicals in cigarettes and cigars can make your symptoms worse. They can also cause infections such as bronchitis or pneumonia. Ask your healthcare provider for information if you currently smoke and need help to quit. E-cigarettes or smokeless tobacco still contain nicotine. Talk to your healthcare provider before you use these products. Prevent a cold: ?? Wash your hands often. Use soap and water every time you wash your hands. Rub your soapy hands together, lacing your fingers. Use the fingers of one hand to scrub under the nails of the other hand. Wash for at least 20 seconds. Rinse with warm, running water for several seconds. Then dry your hands. Use germ- killing gel if soap and water are not available. Do not touch your eyes or mouth without washing your hands first. ?? Cover a sneeze or cough. Use a tissue that covers your mouth and nose. Put the used tissue in the trash right away. Use the bend of your arm if a tissue is not available. Wash your hands well withsoap and water or use a hand director of public works. Do not stand close to anyone who is sneezing or coughing. ?? Try to stay away from others while you are sick. This is especially important during the first 2to 3 days when the virus is more easily spread. Wait until a fever, cough, or other symptoms are gone before you return to work or other regular activities. ?? Do not share items while you are sick. This includes food, drinks, eating utensils, and dishes. Follow up with your doctor as directed: Write down your questions so you remember to ask them during your visits. ?? Copyright NotesFirst Information is for End User's use only and may not be sold, redistributed or otherwise used for commercial purposes. All illustrations and images included in CareNotes?? are the copyrighted property of [employer] or [employer] The above information is an food management aide only. It is not intended as medical advice for individual conditions or treatments. Talk to your doctor, nurse or pharmacist before following any medical regimen to see if it is safe and effective for you. Patient Education Oral Candidiasis RIPRAP PLACER: Oral candidiasis , or thrush, is a fungal infection that affects the inside of your mouth. Seek care immediately if: ?? You have trouble swallowing and your jaw and neck are stiff. ?? You are dizzy, thirsty, or have a dry mouth. ?? You are urinating little or not at all. ?? You cannot eat or drink because of the pain. Contact your healthcare provider if: ?? You have a fever. ?? You have nausea, vomiting, or diarrhea. ?? Your signs and symptoms get worse, even after treatment. ?? You have questions or concerns about your condition or care. Common symptoms include the following: ?? White or whitish-yellow patches in the mouth that look like milk curds ?? Redness or bleeding under the patches ?? Sore and painful mouth, with cracking or tearing on the corners ?? Bright red tongue that may feel like it is burning ?? Trouble swallowing and tasting ?? Swelling under dentures Treatment for oral candidiasis includes antifungal medicine that helps kill the fungus that caused your oral candidiasis. This medicine may be a pill or a solution that you gargle. Remove dentures before you gargle. Prevent oral candidiasis: [place] your teeth, gums, and tongue after you eat and before you go to sleep. Use a toothbrush with soft bristles. See your dentist for regular exams. Remove your dentures when you sleep, or at least 6 hours each day. Clean your dentures and soak them in denture reed cleaner. Let them air dry after soaking. Follow up with your healthcare provider as directed: Write down your questions so you remember to ask them during your visits. ?? Copyright [employer] 2020 Information is for End User's use only and may not be sold, redistributed or otherwise used for commercial purposes. All illustrations and images included in CareNotes?? are the copyrighted property of [employer] or [employer] The above information is an food management aide only. It is not intended as medical advice for individual conditions or treatments. Talk to your doctor, nurse or pharmacist before following any medical regimen to see if it is safe and effective for you. CH GENERAL MANAGER documented in this encounter Progress Notes * Kassie Alex APRN-CNP - 07/04/2020 6:13 PM CST Subjective: Amira Adams is a 25 year old female who presents for evaluation: Chief Complaint Patient presents with ??? URI ??? Mouth Lip Problem Primary Care Physician is Tanner Shaw MD. Symptoms include sore throat, sore tongue, cough, and mild dyspnea at times. Onset of symptoms was 2 days ago for cough, sore throat, and mild dyspnea at times. 1 week ago for sore tongue. Pt states she also has some white film on her tongue. Pt denies recent antibiotic use. No hx of mouth guards, or CPAP machines. gradually worsening since that time. no fever. Pt denies any known exposures, no hx of covid. Pt did not get covid or flu vaccine. She is drinking plenty of fluids. Evaluation to date: none. Treatment to date: none No Known Allergies Outpatient Medications Marked as Taking for the 07/04/20 encounter (Office Visit) with Provider, Kayode Pugh Medication Sig ??? amitriptyline (ELAVIL) 10 MG tablet Take 10 mg by mouth at bedtime ??? clotrimazole (MYCELEX) 10 MG zo Take 1 (one) tablet by mouth 5 times daily while awake for 7 days Slowly dissolve in mouth, do not chew or swallow whole ??? Docusate Sodium (COLACE PO) ??? Drospirenone-Ethinyl [...] N ??? vitamin D, cholecalciferol, 50 MCG (1999 UT) tablet Take 2,000 Units by mouth once daily Past Medical History: Diagnosis Date ??? Anxiety and depression ??? Constipation ??? Insomnia ??? Interstitial cystitis ??? Migraine There is no problem list on file for this patient. Past Surgical History: Procedure Laterality Date ??? PILONIDAL CYST RESECTION ??? [place] Tooth Extraction Social History Socioeconomic History ??? Marital status: Single Spouse name: Not on file ??? Number of children: Not on file ??? Years of education: Not on file ??? Highest education level: Not on file Occupational History ??? Not on file Social Needs ??? Financial resource strain: Not on file ??? Food insecurity Worry: Not on file Inability: Not on file ??? Transportation needs Medical: Not on file Non-medical: Not on file Tobacco Use ??? Smoking status: Current Some Day Smoker ??? Smokeless tobacco: Never Used Substance and Sexual Activity ??? Alcohol use: Never Frequency: Never ??? Drug use: Yes Types: Marijuana ??? Sexual activity: Not on file Lifestyle ??? Physical activity Days per week: Not on file Minutes per session: Not on file ??? Stress: Not on file Relationships ??? Social connections Talks on phone: Not on file Gets together: Not on file Attends evangelical service: Not on file Active member of club or organization: Not on file Attends meetings of clubs or organizations: Not on file Relationship status: Not on file ??? Intimate partner violence Fear of current or ex partner: Not on file Emotionally abused: Not on file Physically abused: Not on file Forced sexual activity: Not on file Other Topics Concern ??? Not on file Social History Narrative ??? Not on file Medications reviewed. Review of Systems Pertinent items are noted in HPI Constitutional: Negative for fevers, chills, sweats. Ears, nose, mouth, and throat: Positive for sore throat, sore tongue and white colored film on tongue Respiratory: Positive for mild shortness of breath (pt states she feels like she needs to take a deep breat at times), acute cough Cardiovascular: Negative Gastrointestinal: Negative for diarrhea Hematologic/lymphatic: Negative Musculoskeletal:Negative for body aches Neurological: Negative for headaches Objective: BP 128/80 Pulse 100 Temp 99.2 ??F (37.3 ??C) (Oral) Resp 18 Ht 1.664 m (5' 5.5 ) Wt 81.6 kg (180 lb) SpO2 99% BMI 29.5 kg/m2 Skin: Physical Exam Exam General appearance: alert, cooperative, no distress, oriented to person, place, and time, wellappearing Ears: canals clear, tympanic membranes normal, hearing intact to voice Nose: nares open; no septal deviation is noted, nasal mucosa not inflamed, no maxillary tenderness Throat: soft palate, uvula, and tonsils normal, thrush, geographic tongue Neck: range of motion is intact, Nodes: no cervical adenopathy, non tender to palpation Lungs: breath sounds normal and symmetric; no rales or wheezes Heart: regular rhythm, normal S1 and S2, without murmurs, gallops or rubs Neurologic: mental status normal; alert and oriented X 3; Recent Results (from the past 24 hour(s)) SARS-COV-2 (COVID-19)+INFLU A+B AG (AMB) POC Collection Time: 07/04/20 6:08 PM Result Value Ref Range Influenza A Antigen Rapid Negative Negative Influenza B Antigen Rapid Negative Negative SARS-CoV-2 Ag Negative Negative COVID Internal Control Acceptable Acceptable Lot # [id number] Expiration Date 01 27 2022 Instrument Serial Number [id number] STREP A SCREEN - POINT OF CARE (AMB) STL Collection Time: 07/04/20 6:13 PM Result Value Ref Range Strep A Rapid POCT Negative Negative Strep A Internal Control Present Lot # [id number] Expiration Date 05 24 2021 Assessment: . Encounter Diagnoses Name Primary? Viral upper respiratory tract infection Yes ??? Oral candidiasis Plan: Discussed dx and tx of URIs Discussed the importance of avoiding unnecessary abx therapy. Suggested symptomatic OTC remedies. RTC prn. If no improvement in your tongue pain/symptoms in the next 7 days follow up with PCP. While waiting for your COVID-19 test result or if your COVID-19 test is positive: ISOLATE: Stay home except to get medical care! Separate yourself from other people and pets in yourhome: ??? Do not go to work, school, or public areas, such as stores or social gatherings. ??? Do not use public transportation. ??? If available, stay in a separate bedroom and use a separate bathroom. ??? Ask others to care for your pets. (If possible) ??? Wear a facemask when around other people or pets. ??? Cover your mouth and nose with a tissue when you cough or sneeze. If a tissue is not available,cough or sneeze into your upper sleeve (not your hands). ??? Throw tissues away in trash-can that has a bag in it. Empty your trash daily. ??? Always wash your hands after you throw away the tissue or garbage. QUARANTINE CAN BE COMPLETE ONCE THERE HAS BEEN 10 DAYS SINCE SYMPTOM ONSET, FEVER FREE X 24 HOURS AND HAVING SYMPTOM IMPROVEMENT. Self-care: ??? Rest as much as possible. Slowly start to do more each day. ??? Take the medicines recommended by your doctor for fever, body aches, cough, or headaches. (Tylenol or Ibuprofen for aches/pains/fever as needed) (Antihistamines like Claritin or Benadryl as needed for drainage) (Delsym and cough drops/throat lozenges as needed for cough) ??? Drink more liquids as directed to help thin and loosen mucus so it is easier to cough up. Liquids such as water, fruit juice, and broth also help keep you hydrated. ??? Soothe a sore throat by gargling with warm salt water. Make salt water by dissolving ?? teaspoon salt in 1 cup warm water (8 ounces). Older children and adults can also use throat lozenges, ice chips, or sore throat spray. ??? Use a humidifier or vaporizer to increase air moisture in your home. This may make it easier tobreathe and help decrease coughing. ??? Use saline nasal drops as directed to relieve congestion. ??? Apply petroleum-based jelly around the outside of nostrils to decrease irritation from blowing your nose. ??? DO NOT smoke or vape. Nicotine and other chemicals in cigarettes and cigars can make your symptoms worse. Monitor your symptoms: ??? Seek medical attention right away if your symptoms get worse, such as if you are having difficulty breathing, shortness of breath, new confusion or inability to arouse, or bluish lips or face. ??? If indicated a pulse ox will be soon delivered to your home - monitor your oxygen saturations with this device. If you find your Oxygen Saturation is falling 92% or below please notify your PCP right away or seek medical attention. ??? If you have a medical emergency, call 911 and notify the EMS personnel that you have or are being evaluated for COVID-19. Put on a facemask before emergency medical services arrive Orders Placed This Encounter ??? COVID-19 SARS-COV-2 PCR QUAL ([facility]) Anterior Nares, bilateral. [facility] Acct Bill Order Specific Question: Is the patient experiencing any symptoms consistent with COVID (eg. Fever,cough, shortness of breath)? Answer: Yes Order Specific Question: Date of symptoms onset? Answer: 07/02/2020 Order Specific Question: Symptoms as described by CDC. (Select all that apply) Answer: Cough [[id number]] Order Specific Question: Symptoms as described by CDC. (Select all that apply) Answer: Sore throat [[id number]] Order Specific Question: Symptoms as described by CDC. (Select all that apply) Answer: New loss of taste [[id number]] Order Specific Question: Hospitalized for COVID-19? Answer: No Order Specific Question: Admitted to ICU for COVID-19? Answer: No Order Specific Question: First COVID-19 test? 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 Answer: Unknown Order Specific Question: Resident in a congregate care setting? Answer: Unknown Order Specific Question: ? Answer: Unknown Order Specific Question: Release to patient Answer: Immediate ??? STREP A SCREEN - POINT OF CARE (AMB) STL Order Specific Question: Release to patient Answer: Immediate ??? SARS-COV-2 (COVID-19)+INFLU A+B AG (AMB) POC Order Specific Question: Release to patient Answer: Immediate Order Specific Question: Is the patient experiencing any symptoms consistent with COVID (eg. Fever,cough, shortness of breath)? Answer: Yes Order Specific Question: Date of symptoms onset? Answer: 07/02/2020 Order Specific Question: Symptoms as described by CDC. (Select all that apply) Answer: Cough [[id number]] Order Specific Question: Symptoms as described by CDC. (Select all that apply) Answer: Sore throat [[id number]] Order Specific Question: Symptoms as described by CDC. (Select all that apply) Answer: New loss of taste [[id number]] Order Specific Question: Hospitalized for COVID-19? Answer: No Order Specific Question: Admitted to ICU for COVID-19? 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 Answer: Unknown Order Specific Question: Resident in a congregate care setting? Answer: Unknown Order Specific Question: First COVID-19 test? Answer: Unknown Order Specific Question: ? Answer: Unknown ??? clotrimazole (MYCELEX) 10 MG zo Sig: Take 1 (one) tablet by mouth 5 times daily while awake for 7 days Slowly dissolve in mouth, donot chew or swallow whole Dispense: 35 tablet Refill: 0 Continue to follow up with Tanner Shaw MD as directed. After Visit Summary reviewed with patient. The patient indicates understanding of these issues and agrees with the plan. Patient discharged to Home .CECILY Gavin 07/04/2020 6:27 PM CH GENERAL MANAGER documented in this encounter Plan of Treatment Not on file documented as of this encounter Procedures Procedure Name Priority Date/Time Associated Diagnosis Comments COVID-19 SARS-COV-2 PCR QUAL ([facility]) Routine 07/04/2020 6:31 PM BRANCH GENERAL MANAGER Viral upper respiratory tract infection STREP A SCREEN - POINT OF CARE (AMB) STL Routine 07/04/2020 6:13 PM BRANCH GENERAL MANAGER Viral upper respiratory tract infection SARS-COV-2 (COVID-19)+INFLU A+B AG (AMB) POC Routine 07/04/2020 6:08 PM BRANCH GENERAL MANAGER Viral upper respiratory tract infection documented in this encounter Results * COVID-19 SARS-COV-2 PCR QUAL ([facility]) (07/04/2020 6:31 PM BRANCH GENERAL MANAGER) SARS-CoV-2 SAMIR Not Detected Not Detected [facility] INSURANCE BILL Comment: This nucleic acid amplification test was developed and its performance characteristics determined by [facility]. Nucleic acid amplification tests include RT-PCR and [...] NASOPHARYNGEAL STRUCTURE / Unknown 07/04/2020 6:31 PM BRANCH GENERAL MANAGER 07/05/2020 Narrative Resulting Agency Comment Lab [facility]: [facility] [address] ??[facility] [phone] Kass[facility] - MICROBIOLOG Y ORDERABLES [facility] INSURANCE BILL [address] [place] [address] * STREP A SCREEN - POINT OF CARE (AMB) STL (07/04/2020 6:13 PM BRANCH GENERAL MANAGER) Strep A Rapid POCT Negative Negative [facility] Strep A Internal Control Present [facility] Lot # [id number] [facility] Expiration Date 05 24 2021 [facility] Throat ENTIRE THROAT (SURFACE REGION OF NECK) / Unknown 07/04/2020 6:13 PM BRANCH GENERAL MANAGER [facility] - POINT OF CA RE ORDERABLES [facility] [address] [phone] * SARS-COV-2 (COVID-19)+INFLU A+B AG (AMB) POC (07/04/2020 6:08 PM BRANCH GENERAL MANAGER) Influenza A Antigen Rapid Negative Negative [facility] Influenza B Antigen Rapid Negative Negative [facility] SARS-CoV-2 Ag Negative Negative [facility] COVID Internal Control Acceptable Acceptable [facility] Lot # [id number] [facility] Expiration Date 01 27 2022 [facility] Instrument Serial Number [id number] [facility] Microbiology SPECIMEN FROM NASAL FOSSAE / Unknown 07/04/2020 6:08 PM BRANCH GENERAL MANAGER Narrative [facility] - 07/04/2020 6:08 PM BRANCH GENERAL MANAGER Negative results should be treated as presumptive and confirmation with a molecular assay, if necessary, for patient management, may be performed. Negative results do not rule out COVID-19 and should not be used as the sole basis for treatment or patient management decisions, including infection control decisions. Negative results should be considered in the context of a patient's recent exposures, history and the presence of clinical signs and symptoms consistent with COVID-19. Kassie Alex APRN-[facility] - POINT OF CA RE ORDERABLES [facility] [address] [phone] documented in this encounter Visit Diagnoses Diagnosis Viral upper respiratory tract infection- Primary Acute upper respiratory infections of unspecified site Oral candidiasis Candidiasis of mouth documented in this encounter Additional Health Concerns Infection Onset Date Last Indicated Resolved Time COVID-19 Under Investigation 07/04/2020 07/04/2020 07/04/2020 6:13 PM BRANCH GENERAL MANAGER COVID-19 Under Investigation 07/04/2020 07/04/2020 07/06/2020 2:11 PM BRANCH GENERAL MANAGER documented as of this encounter Care Teams Brick Tester Relationship Specialty Start Date End Date Tanner Shaw MD [address] [place] [address] PCP - General Family Medicine 04/04/19 documented as of this encounter
--- OUTSIDE RECORDS SUMMARY | 2024-05-30 12:54 | XMS_ITS | Encounter Summary ---
Author Organization [facility] Address [address] [place] [address] Care Team Providers Care Risk And Insurance Consultant Name Role Phone Tanner Shaw MD Primary Care Provider [phone] Reason for Visit * Reason Comments Congestion Cough Ear Pain Sinusitis Encounter Details Date Type Department Care Team (Late st Contact Info) Description 04/04/2019 2:40 PM GUIDANCE CONSULTANT Office Visit [facility] AT [address] [address] [facility] Acute non-recurrent frontal sinusitis (Primary Dx) Social History Tobacco Use Types [...] file Gender Identity Female 04/04/2019 2:45 PM GUIDANCE CONSULTANT Sexual Orientation Not on file documented as of this encounter Last Filed Vital Signs Vital Sign Reading Time Taken Comments Blood Pressure 102/78 04/04/2019 2:49 PM GUIDANCE CONSULTANT Pulse 67 04/04/2019 2:49 PM GUIDANCE CONSULTANT Temperature 36.9 ??C (98.5 ??F) 04/04/2019 2:49 PM CS T Respiratory Rate - - Oxygen Saturation - - Inhaled Oxygen Concentration - - Weight 74.8 kg (165 lb) 04/04/2019 2:49 PM GUIDANCE CONSULTANT Height 165.1 cm (5' 5 ) 04/04/2019 2:49 PM GUIDANCE CONSULTANT Body Mass Index 27.46 04/04/2019 2:49 PM GUIDANCE CONSULTANT documented in this encounter Patient Instructions * Patient Instructions* Debi Nance Gali, ONCOLOGIST-LOG SORTING SUPERVISOR - 04/04/2019 3:08 PM GUIDANCE CONSULTANT Images from the original note were not included. Patient Education Sinusitis WHAT YOU NEED TO KNOW: What is sinusitis? Sinusitis is inflammation or infection of your sinuses. It is most often caused by a virus. Acute sinusitis may last up to 12 weeks. Chronic sinusitis lasts longer than 12 weeks. Recurrent sinusitis means you have 4 or more times in 1 year. What increases my risk for sinusitis? ?? Medical conditions, such as an upper respiratory infection, allergies, asthma, or cystic fibrosis ?? Dental infections or procedures, such as gum infections, tooth decay, or a root canal ?? Smoking ?? Abnormal sinus structure, such as nasal [...] ask about your symptoms. He or she will check inside your nose using a nasal speculum. This is a small tool used to open yournostrils. A sample of the mucus from your nose may show what germ is causing your infection. How is sinusitis treated? Your symptoms may [...] I manage my symptoms? ?? Rinse your sinuses. Use a sinus rinse device to rinse your nasal passages with a saline (salt water) solution or distilled water. Do not use tap water. This will help thin the mucus in your nose and rinse away pollen and dirt. It will also help reduce swelling so you can breathe normally. Ask your healthcare provider how often to do this. ?? Breathe in steam. Heat a bowl of water until you see steam. Lean over the bowl and make a tent over your head with a large towel. Breathe deeply for about 20 minutes. Be careful not to get too close to the steam or burn yourself. Do this 3 times a day. You can also breathe deeply when you take ahot shower. ?? Sleep with your head elevated. Place [...] can I help prevent the spread of germs that cause sinusitis? Wash your hands often with soap and water. Wash your hands after you use the bathroom, change a child's diaper, or sneeze. Wash your hands before you prepare or eat food. When should I seek immediate care? ?? Your eye and eyelid are red, swollen, and painful. ?? You cannot open your eye. ?? You have vision changes, such as double vision. ?? Your eyeball bulges out or you cannot move your eye. ?? You are more sleepy than normal, or you notice changes in your ability to think, move, or talk. ?? You have a stiff neck, a fever, or a bad headache. ?? You have swelling of your forehead or scalp. When should I contact my healthcare provider? ?? Your symptoms do not improve after 3 days. ?? Your symptoms do not go away after 10 days. ?? You [...] refuse treatment. The above information is an educational diagnostician only. It is not intended as medical advice for individual conditions or treatments. Talk to your doctor, nurse or pharmacist before following any medical regimen to see if it is safe and effective for you. ?? Copyright [employer] 2019 Information is for End User's use only and may not be sold, redistributed or otherwise used for commercial purposes. All illustrations and images included in CareNotes?? are the copyrighted property of [employer] or [employer] Patient Education Sinusitis WHAT YOU NEED TO KNOW: What is sinusitis? Sinusitis is inflammation or infection of your sinuses. It is most often caused by a virus. Acute sinusitis may last up to 12 weeks. Chronic sinusitis lasts longer than 12 weeks. Recurrent sinusitis means you have 4 or more times in 1 year. What increases my risk for sinusitis? ?? Medical conditions, such as an upper respiratory infection, allergies, asthma, or cystic fibrosis ?? Dental infections or procedures, such as gum infections, tooth decay, or a root canal ?? Smoking ?? Abnormal sinus structure, such as nasal [...] ask about your symptoms. He or she will check inside your nose using a nasal speculum. This is a small tool used to open yournostrils. A sample of the mucus from your nose may show what germ is causing your infection. How is sinusitis treated? Your symptoms may [...] I manage my symptoms? ?? Rinse your sinuses. Use a sinus rinse device to rinse your nasal passages with a saline (salt water) solution or distilled water. Do not use tap water. This will help thin the mucus in your nose and rinse away pollen and dirt. It will also help reduce swelling so you can breathe normally. Ask your healthcare provider how often to do this. ?? Breathe in steam. Heat a bowl of water until you see steam. Lean over the bowl and make a tent over your head with a large towel. Breathe deeply for about 20 minutes. Be careful not to get too close to the steam or burn yourself. Do this 3 times a day. You can also breathe deeply when you take ahot shower. ?? Sleep with your head elevated. Place [...] can I help prevent the spread of germs that cause sinusitis? Wash your hands often with soap and water. Wash your hands after you use the bathroom, change a child's diaper, or sneeze. Wash your hands before you prepare or eat food. When should I seek immediate care? ?? Your eye and eyelid are red, swollen, and painful. ?? You cannot open your eye. ?? You have vision changes, such as double vision. ?? Your eyeball bulges out or you cannot move your eye. ?? You are more sleepy than normal, or you notice changes in your ability to think, move, or talk. ?? You have a stiff neck, a fever, or a bad headache. ?? You have swelling of your forehead or scalp. When should I contact my healthcare provider? ?? Your symptoms do not improve after 3 days. ?? Your symptoms do not go away after 10 days. ?? You [...] refuse treatment. The above information is an educational diagnostician only. It is not intended as medical advice for individual conditions or treatments. Talk to your doctor, nurse or pharmacist before following any medical regimen to see if it is safe and effective for you. ?? Copyright [employer] 2018 Information is for End User's use only and may not be sold, redistributed or otherwise used for commercial purposes. All illustrations and images included in CareNotes?? are the copyrighted property of [employer] or [employer] ANCE CONSULTANT documented in this encounter Progress Notes * Debi Nance APRN-CNP - 04/04/2019 2:56 PM CST [facility] Amira Adams is a 24 year old female who presents for evaluation: Chief Complaint Patient presents with ??? Congestion ??? Cough ??? Ear Pain ??? Sinusitis Primary Care Physician is Tanner Shaw MD. SUBJECTIVE: Pt is a 24 yr old female who presents to the clinic with nasal and chest congestion, cough, ear pain and sinus issues. General The history is provided by the patient. This is a new problem. Episode onset: 10 days ago. Episode frequency: intermittently. The problem has been gradually worsening. The pain is moderate. The symptoms are localized to the head, face, nose, chest, right ear and left ear.Pertinent negatives includeno chest pain, no abdominal pain and no shortness of breath. Nothing aggravates the symptoms. Nothing relieves the symptoms. Treatments tried: tylenol and advil. The treatment provided mild relief. Past Medical History: Diagnosis Date ??? NEGATIVE PAST MEDICAL HISTORY - SEE PROBLEM LIST Current Outpatient Medications on File Prior to Visit Medication Sig Dispense Refill ??? cimetidine (CIMETIDINE 200) 200 MG tablet Take 1 mg by mouth 2 times daily No current facility-administered medications on file prior to visit. Past Surgical History: Procedure Laterality Date ??? NEGATIVE SURGICAL HISTORY Social History Socioeconomic History ??? Marital status: Single Spouse name: Not on file ??? Number of children: Not on file ??? Years of education: Not on file ??? Highest education level: Not on file Occupational History ??? Not on file Social Needs ??? Financial resource strain: Not on file ??? Food insecurity: Worry: Not on file Inability: Not on file ??? Transportation needs: Medical: Not on file Non-medical: Not on file Tobacco Use ??? Smoking status: Never Smoker ??? Smokeless tobacco: Never Used Substance and Sexual Activity ??? Alcohol use: Never Frequency: Never ??? Drug use: Not on file ??? Sexual activity: Not on file Lifestyle ??? Physical activity: Days per week: Not on file Minutes per session: Not on file ??? Stress: Not on file Relationships ??? Social connections: Talks on phone: Not on file Gets together: Not on file Attends episcopalian service: Not on file Active member of club or organization: Not on file Attends meetings of clubs or organizations: Not on file Relationship status: Not on file ??? Intimate partner violence: Fear of current or ex partner: Not on file Emotionally abused: Not on file Physically abused: Not on file Forced sexual activity: Not on file Other Topics Concern ??? Not on file Social History Narrative ??? Not on file No family history on file. Current Outpatient Medications Medication Sig Dispense Refill ??? amoxicillin-clavulanate (AUGMENTIN) 875-125 MG tablet Take 1 tablet by mouth 2 times daily withmorning and evening meal for 10 days Reasons: Sinus Irritation and Congestion 20 tablet 0 ??? cimetidine (CIMETIDINE 200) 200 MG tablet Take 1 mg by mouth 2 times daily No current facility-administered medications for this visit. No Known Allergies REVIEW OF SYSTEMS: Review of Systems Constitutional: Negative for chills, diaphoresis, fever, malaise/fatigue and weight loss. HENT: Positive for congestion, ear pain and sinus pain. Negative for ear discharge, hearing loss, sore throat and tinnitus. Eyes: Negative for pain, discharge and redness. Respiratory: Positive for cough. Negative for hemoptysis, sputum production, shortness of breath and wheezing. Cardiovascular: Negative for chest pain and palpitations. Gastrointestinal: Negative for abdominal pain, diarrhea, nausea and vomiting. Skin: Negative for itching and rash. OBJECTIVE: General appearance: alert, well appearing, and in no distress. BP 102/78 (BP SITE: LEFT ARM, BP POSITION: SITTING, BP CUFF SIZE: 11) Pulse 67 Temp 98.5 ??F (36.9 ??C) (Oral) Ht 1.651 m (5' 5 ) Wt 74.8 kg (165 lb) BMI 27.46 kg/m2 Physical Exam Constitutional: She is well-developed, well-nourished, and in no distress. HENT: Head: Normocephalic and atraumatic. Right Ear: Hearing, tympanic membrane, external ear and ear canal normal. Left Ear: Hearing, tympanic membrane, external ear and ear canal normal. Nose: Rhinorrhea and sinus tenderness present. No mucosal edema. Right sinus exhibits frontal sinustenderness. Right sinus exhibits no maxillary sinus tenderness. Left sinus exhibits frontal sinus tenderness. Left sinus exhibits no maxillary sinus tenderness. Mouth/Throat: Uvula is midline and mucous membranes are normal. Posterior oropharyngeal erythema present. No oropharyngeal exudate, posterior oropharyngeal edema or tonsillar abscesses. Moderate amount of clear, thick post nasal drip noted in back of throat Eyes: Pupils are equal, round, and reactive to light. Conjunctivae and EOM are normal. Neck: Normal range of motion. Neck supple. Cardiovascular: Normal rate, regular rhythm and normal heart sounds. Pulmonary/Chest: Effort normal and breath sounds normal. Lymphadenopathy: She has no cervical adenopathy. No results found for this or any previous visit (from the past 24 hour(s)). ASSESSMENT: Encounter Diagnosis Name Primary? Acute non-recurrent frontal sinusitis Yes PLAN: Orders Placed This Encounter ??? amoxicillin-clavulanate (AUGMENTIN) 875-125 MG tablet Sig: Take 1 tablet by mouth 2 times daily with morning and evening meal for 10 days Reasons: Sinus Irritation and Congestion Dispense: 20 tablet Refill: 0 Take antibiotics as directed Can try OTC Flonase or similar per package directions Can try OTC Mucinex DM per package directions Told that sinus symptoms typically do not begin to resolve for 3 to 4 days. Drink plenty of water, aim for 48 to 64 oz per day to help thin post nasal drip. If your symptoms worsen at any time or aren't some improved in one week, please follow up with a healthcare provider. ANCE CONSULTANT documented in this encounter Plan of Treatment Not on file documented as of this encounter Visit Diagnoses Diagnosis Acute non-recurrent frontal sinusitis- Primary documented in this encounter Care Teams Risk And Insurance Consultant Relationship Specialty Start Date End Date Tanner Shaw MD [address] [place] [address] PCP - General Family Medicine 04/04/19 documented as of this encounter
--- OUTSIDE RECORDS SUMMARY | 2024-05-30 12:54 | XMS_ITS | Clinical Summary ---
Author Organization [facility] Address [address] [place] [address] Care Team Providers Care Machinist Instructor Name Role Phone Tanner Sahw MD Primary Care Provider [phone] Source Comments [facility],non-owned Affiliates and Associated Physician Practices is amultiple site organization consisting of ambulatory clinics and hospital sitesin [place], [place], [place] and [place]. This disclosure is being madepursuant to the Care Everywhere program and may not contain all information available regarding this patient. Last updated 18.[facility] Allergies No known active allergies Medications * Be aware that medications may not be up to date on this document. Alwaysverify current medications with the patient. Medication Sig Dispensed Refills Start Date End Date Status cimetidine (CIMETIDINE 200) 200 MG tablet Take 1 mg by mouth 2 times daily Active Drospirenone-Ethinyl Estradiol (RAMON PO) Active Multiple Vitamins-Minerals (MULTIVITAL PO) Active Docusate Sodium (COLACE PO) Active vitamin D, cholecalciferol, 50 MCG (1999) tablet Take 2,000 Units by mouth once daily Active Ferrous Sulfate (IRON) 28 MG Active Escitalopram Oxalate (LEXAPRO PO) Active Fexofenadine HCl (DANG ALLERGY PO) Acti ve rizatriptan (MAXALT) 10 MG tablet Take 10 mg by mouth daily as needed - may repeat one time for Migraine N Active Pantoprazole Sodium (PROTONIX PO) Active amitriptyline (ELAVIL) 10 MG tablet Take 10 mg by mouth at bedtime Active albuterol HFA (PROVENTIL;VENTOLIN;P ROAIR) 108 (90 Base) MCG/ACT inhalerIndications:Ac mary's igloo bronchitis, unspecified organism Inhale 2 (two) puffs by mouth every 6 hours as needed 1 Inhaler 12/05/2020 Active Active Problems No known active problems Social [...] Gender Identity Female 04/04/2019 2:45 PM CONSTRUCTION GRIP Sexual Orientation Not on file Last Filed [...] Mass Index 29.99 12/05/2020 11:27 AM CDT Plan of Treatment Health Maintenance Due Date Last Done Comments PAP SMEAR 1994 HIV SCREENING 2009 HEPATITIS C SCREENING 02/08/2012 DTAP/TDAP/TD VACCINES (1 - Tdap) 2013 HEPATITIS B VACCINE (1 of 3 - 19+ 3-dose series) 2013 DEPRESSION SCREENING 05/25/2023 COVID-19 VACCINE ( - 2023-2 5 season) 2024 INFLUENZA VACCINE (#1) 2024 ZOSTER VACCINE (1 of 2) 02/13/2044 HIB VACCINE Aged Out No longer eligi ble based on patient's age to complete this topic HPV VACCINE Aged Out No longer eligi ble based on patient's age to complete this topic MENINGOCOCCAL VACCINE Aged Out No hussain lula eligible based on patient's age to complete this topic PNEUMOCOCCAL VACCINE Aged Out No long er eligible based on patient's age to complete this topic Care Teams Machinist Instructor Relationship Specialty Start Date End Date Tanner Shaw MD [address] [place] [address] PCP - General Family Medicine 04/04/19
--- OUTSIDE RECORDS SUMMARY | 2024-05-30 12:54 | XMS_ITS | Referral Summary ---
Author Organization [facility] Address [address] [place] [address] Care Team Providers Care Casualty Underwriter Name Role Phone Tanner Shaw MD Primary Care Provider [phone] Source Comments [facility],non-owned Affiliates and Associated Physician Practices is amultiple site organization consisting of ambulatory clinics and hospital sitesin [place], [place], [place] and [place]. This disclosure is being madepursuant to the Care Everywhere program and may not contain all information available regarding this patient. Last updated 18.[facility] Allergies No known active allergies Medications * Be aware that medications may not be up to date on this document. Always verify current medications with the patient. Medication Sig [...] (PROVENTIL;VENTOLIN;P ROAIR) 108 (90 Base) MCG/ACT inhalerIndications:Ac [place] bronchitis, unspecified organism Inhale 2 (two) puffs [...] file Gender Identity Female 04/04/2019 2:45 PM DUCT LAYER Sexual Orientation Not on file Last Filed [...] 12/05/2020 11:27 AM CDT Plan of Treatment Not on file Care Teams Casualty Underwriter Relationship Specialty Start Date End Date Tanner Shaw MD [address] [place] [address] PCP - General Family Medicine 04/04/19
--- OUTSIDE RECORDS SUMMARY | 2024-05-30 12:54 | XMS_ITS | CONTINUITY OF CARE DOCUMENT ---
Author Name anna castillo Address Unknown Organization [facility] Address [address] [place] [address] Phone [phone] Care Team Providers Care Senior Android Developer Name Role Phone Jamil Mays MD Unavailable [phone] Jamil Mays MD Unavailable [phone] DENICE GEE MD Unavailable [phone] PROBLEMS Condition Status Date Provider Notes Valvular heart disease active Jamil Mays MD IRON DEFICIENCY active Jamil Mays MD b12 nromal Hyperlipidemia;NEG CRP active Jamil Mays MD Screening active Jamil Mays MD GERD active Jamil Mays MD Overweight active Jamil Mays MD Exposure to SARS-associated coronavirus;NEG SWAB and pos igg active Jamil Mays MD Vitamin D deficiency active Jamil [place] Costal Chondritis active Jamil Mays MD Migraine headaches active Jamil Mays MD Palpitations;NML TSH active Jamil [place] ? Sleep apnea active Jamil Mays MD Cardiovascular screening completed - Jamil Mays MD ENCOUNTERS Date Type Provider Location Encounter Diag nosis 8 - 8 In-person encounter Office Visit Jamil Mays MD [facility] [place] Office Cardiovascular screeningGERDOverweightExposure to SARS-associated coronavirus;NEG SWAB and pos iggVitamin D deficiency? Sleep apneaPalpitations;NML TSHMigraine headachesCostal Chondritis VITAL SIGNS Date Observation Value Provider weight E&M 173 [lb_av] Gunjan Brooks Body Mass Index (Ratio) 28.79 kg/m2 Brennan Mays MD blood pressure, cuff size regular En [facility] [place] blood pressure, diastolic 80 mm[Hg] En [facility] blood pressure, systolic 132 mm[Hg] Alisha dyer [place] pulse rate 86 /min [facility] oxygen saturation, oximetry 98 % [facility] respiratory rate E&M 19 /min [facility] height E&M 65 [in_i] [facility] weight E&M 173 [lb_av] [facility] REASON FOR REFERRAL Date Service cp [Description: Carter herbert - Dr Jerzy Sloan] RESULTS Date Observation Value Provider Reference Range Interpretation Location 9 ferritin, serum 64 ng/mL [facility] 15-150 9 B-12, serum 1323 pg/mL [facility] [phone] High 9 lipase, serum 51 U/L [facility] 14-72 9 amylase, serum 92 1/L [facility] 31-110 9 iron saturation percent, serum 30 % [facility] 15-55 9 iron, serum 88 ug/dL [facility] 27-159 9 iron binding capacity, unsaturated 209 ug/dL [facility] [phone]/08/1 9 iron binding capacity, total 297 ug/dL [facility] 102-303 8239/08/1 9 free thyroxine index 3.2 [facility] 1.2-4.9 9 triiodothyronine resin uptake 32 % [facility] 24-39 9 thyroxine, serum, total 10.1 ug/dL [facility] 4.5-12.0 9 thyroid stimulating hormone, serum 2.540 u[IU]/mL [facility] 0.450-4.500 9 c-reactive protein, quantitative, serum 1.76 mg/L [facility] 0.00-3.00 9 lipoprotein, beta, serum, point, quantitative, calculated 122 mg/dL [facility] 0-99 High 9 very low density lipoproteins 15 mg/dL [facility] 5-40 9 HDL cholesterol, serum 40 mg/dL [facility] >39 9 triglyceride, serum, random 75 mg/dL [facility] 0-149 9 cholesterol, serum 177 mg/dL [facility] [phone]/08/1 9 hemoglobin A1C, blood, as % of total hemoglobin 5.5 % [facility] 4.8-5.6 HISTORY OF MEDICATION USE Medication Status Instructions Dates Provider Indications Com ments FERROUS SULFATE 325 (65 FE) MG ORAL TABLET active ONE PER DAY 9 Jamil Mays MD EQL VITAMIN D3 CAPSULE active 8 Jamil Mays MD PROTONIX 40 MG ORAL TABLET DELAYED RELEASE active ONE TAB. DAILY 8 Jamil Mays MD ADDERALL 20 MG ORAL TABLET active take one tablet by mouth once daily 8 Delma Jerome PANTOPRAZOLE SODIUM 40 MG ORAL TABLET DELAYED RELEASE completed take one tablet by mouth once daily 2 - 8 Jamil Mays MD #30, 30 days supply, Filled 01/04/2020 AMPHETAMINE-DEXT ROAMPHET ER 20 MG ORAL CAPSULE EXTENDED RELEASE 24 HOUR completed take one tablet by mouth once daily 2 - 8 Jamil Mays MD #30, 30 days supply, Filled 01/04/2020 LORAZEPAM 0.5 MG ORAL TABLET active take one tablet by mouth at night 7 Delma Jerome #30, 30 days supply, Filled 01/09/2020 SOCIAL HISTORY Date Observation Value Provider quit smoking, stage quit Jamil sánchez MD social history E&M S moking History: Renan keller has never smoked. Jamil Mays MD social history reviewed E&M revi ewed - no changes required Jamil Mays MD smoking status Never smoker Delma Jerome INSURANCE PROVIDERS Payer name Policy type / Coverage type [employer]imal red democrat [place] [employer] MEDICAID (2) Medicaid [id number] TREATMENT PLAN Date Name Performer :neg abd us and gb us and a1c Geovani Mays MD :mildl mr and tr Jamil [place] :nml A1C Jamil Mays MD Cardiology Jamil Mays MD Cardiology Jamil Mays MD Cardiology Jamil Mays MD Cardiology:to see sleep md Marycruz Mays MD Date Name Chiropracter - Dr Jerzy Sloan Stress Routine HEMOGLOBIN A1c Holter Monitor 24 Hr Abdominal US TSH, free T4, total T3 Complete Echo LIPASE AMYLASE VITAMIN B12 IRON AND TOTAL IRON BINDING CAPACITY FERRITIN Covid Antibody Igg C-REACTIVE PROTEIN LIPID PANEL HISTORY OF PROCEDURES Procedure Date Procedure Name Provider Procedure Notes S tatus Ultrasound, abdomen, complete Jamil Mays MD completed Stress EKG Jamil Mays MD complete d EKG Maurisio winslow DO completed
== END 2024-05-23 09:51 | disposition home or self-care (01) ==
PROVIDERS: Emergency Provider Family Medicine
DX: J10.1 Influenza due to other identified influenza virus with other respiratory manifestations (principal); Z20.822 Contact with and (suspected) exposure to COVID-19; J45.909 Unspecified asthma, uncomplicated; K21.9 Gastro-esophageal reflux disease without esophagitis; Z87.891 Personal history of nicotine dependence
CPT/HCPCS: 71046; 87637; 99283; A9270